=== PATIENT | female | born 1970 | race Caucasian/White ===

== ENCOUNTER 2018-07-28 17:23 | Emergency (ER) | payer BC ==
--- OUTSIDE RECORDS SUMMARY | 2018-07-28 17:28 | XMS REPORT | Continuity of Care Document ---
:1970 External Reference #:[id number] Author Name Elena Bailon M.D., R.D. Address [address] [place] [id number] Care Team Providers Name Role Phone Elena Bailon M.D., R.D. Care Team Information Adoption Worker Unavailable Payers Date Identification Numbers Payment Provider Subscriber Effective: 2011 Policy Number: [id number] [facility] Guido Raygoza Expires: 2014 Group Number: [id number] [address] PayID: [id number] [place] [address] Effective: 2014 Policy Number: Herminio Mckeon [id number] Medicaid Expires: 2015 PayID: [id number] [address] [place] [address] Effective: 2015 Policy Number: [id number] [facility] Colleen Mckeon Expires: 2016 [place] Name[place] [address] [address] PayID: [id number] HIRAM Bennett [id number] Effective: 2016 Policy Number: Herminio Mckeon [id number] Medicaid Expires: 2018 PayID: [id number] [address] [place] [address] Effective: 2018 Policy Number: Excellus YANDY Mckeon [id number] Group Name: [place] [address] [address] PayID: [id number] HIRAM Bennett [id number] Problems Active Problems Provider Date Disorder of endocrine system Elena Bailon M.D., R.D. Onset: 10/04/2012 Family History Date Family Member(s) Observation Comments General CAD General Glaucoma General Cancer, Breast Mother Osteoporosis Mother CAD Mother Eating Disorder Children 4 Children , 3 biological, one adopted Siblings 4 Siblings . Not in touch with. Was a contact. There was foster child so does not have much alcoholism. Aunt Cancer, Breast in late 40's. Social History Type Date Description Comments Sex Unknown Marital Status Diet Healthy, Well Balanced Analyzes diet regularly online to make sure she is eating healthy. Eats frequently through the day. Eats more now that she had low cortisol. 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 As of 2019 she is not running races. Runs about 50 miles per week. Allergies, Adverse Reactions, Alerts Description No Known Drug Allergies Medications Active Medications SIG Qnty Indications Ordering Provider Date Vitamin D-3 5 by mouth every Elena Bailon, 02/10/2015 1000Unit day M.D., R.D. Capsules Wellbutrin XL 1 by mouth every 30tabs Elena Bailon, 02/10/2015 150mg day M.D., R.D. Tablets ER 24HR Norethindrone take 1 tablet by 84tabs Elena Bailon, 03/20/2014 0.35mg mouth every day M.D., R.D. Tablets at the same time Levothyroxine Sodium take 1 tablet by 30tabs Elena Bailon, 09/05/2013 mouth every day M.D., R.D. 75mcg Tablets in the morning Multi-Vitamin/Fe 1 po qd Elena Bailon, 09/16/2008 M.Roman, R.D. Solution History Medications Wellbutrin XL take 1 tablet by 30tabs Elena 03/03/2015 - 300mg mouth every day Adamaris, 07/07/2018 Tablets ER 24HR Jennifer Raymundo. Cipro 1 po bid for 3 days 6tabs N39.0 [facility] 02/10/2015 - 250mg Tablets [facility], 07/07/2018 Jennifer Raymundo. Progesterone Cream apply 1/2-1 gram qd. 3MoSupply Elena 02/18/2014 - Adamaris, 03/20/2014 30G/G Zackary, R.D. Levothyroxine Sodium 1 by mouth every day 30tabs Padmini 08/07/2013 - Sparkle, 09/05/2013 100mcg Tablets [employer]ESSION[employer] SERVICES CONSULTANT-C Micronor Winfield 08/07/2013 - 0.35mg Sparkle, 08/07/2013 PROFESSIONAL SERVICES CONSULTANT-C Norethindrone 1 tablet by mouth 3pack [facility] 08/07/2013 - 0.35mg every day at the [facility], 11/21/2013 Tablets same time Jennifer Raymundo. Levothyroxine Sodium take one tablet by 90tabs Padmini 09/04/2011 - mouth daily. Sparkle, 08/07/2013 50mcg Tablets PROFESSIONAL SERVICES CONSULTANT-C Levothyroxine Sodium Take One-Half (1/2) 90tabs Elena 07/15/2011 - To One Tablet Daily Adamaris, 09/04/2011 25mcg Tablets Zackary, RTommy. Synthroid 1/2 to 1 po qd 90tabs Elena 04/08/2011 - 25mcg Adamaris, 07/15/2011 Tablets Zackary, RTommy. Concerta 1-2 po qd 60tabs [facility] 04/08/2011 - 18mg Tablets [facility], 07/07/2018 ER Zackary, R.D. Dicloxacillin Sodium 1 tablet q 6 hours 40caps 611.9 Padmini 02/01/2011 - for 10 days Sparkle, 03/19/2011 500mg Capsules PROFESSIONAL SERVICES CONSULTANT-C To Whom It May Colleen has been Marucs Pérez, 01/08/2011 - Concern prescribed M.Roman 03/19/2011 hydrocortisone Cortef 10 mg in the am, 5 450tabs Elena 11/23/2010 - 5mg Tablets mg at noon and at 5 Adamaris, 08/07/2013 pm, with one extra M.D., R.D. if especially rigorous physical training Progesterone Cream apply 1/2-1 gram qd. 3MoSupply [facility] 11/27/2009 - Adamaris, 02/18/2014 30G/G MKal, R.D. OTC Progesterone [facility] 11/21/2009 - Cream [facility], 03/19/2011 Zackary, R.D. Hydrocortisone 10 mg in the in the 120tabs [facility] 11/21/2009 - 5mg morning, 5 mg at [facility], 07/07/2018 Tablets noon and at 5mg at M.DTamika, R.D. night, with one extra if especially rigorous physical training Hydrocortisone 2 po in am, 1 po 120units [facility] 11/20/2008 - 0.5% mid-day and 1 at 5 [facility], 11/21/2009 Cream pm, 1 extra qd if M.D., R.D. extra physical training. Mammogram Lumpy area left [facility] 09/16/2008 - breast 3 o'clock. [facility], 03/19/2011 No prior mammo. Zackary, R.D. Medications Administered in Office Medication SIG Qnty Indications Ordering Provider Date TB,Intradermal (PPD, [facility] 03/24/2015 [facility]) Injection TB,Intradermal (PPD, Elena Bailon M.D., 02/10/2015 [facility]) R.D. Injection Immunizations CPT Code Status Date Vaccine Lot # [id number] Given 03/11/2015 MMR (Measles,Mumps,Rubella) [id number] 21821 Given 02/13/2015 Influenza Virus Vaccine, Quadrivalent, 3 Yr > [id number] Quad, Preserv Free 25917 Given 12/06/2012 Influenza Vaccine-Preservative Free 3 Yrs And [id number] Above 52659 Given 03/16/2012 MMR (Measles,Mumps,Rubella) [id number] 57718 Given 02/15/2012 Menactra (meningococcal conjugate vaccine) [id number] 22805 Given 11/21/2009 Influenza Vaccine-Preservative Free 3 Yrs And [id number] Above 94759 Given 12/06/2007 Tetanus Vital Signs Date Vital Result Comment 07/07/2018 1:06pm Weight 110.00 lb Weight 49.896 kg BP Systolic 100 mmHg BP Diastolic 70 mmHg Heart Rate 60 /min Body Temperature 99.0 F Respiratory Rate 16 /min Height 61.5 inches 5'1.50" BMI (Body Mass Index) 20.4 kg/m2 Last Menstrual Period 5828948 O2 % BldC Oximetry 99 % 08/13/2015 9:37am Weight 101.00 lb Weight 45.814 kg BP Systolic 98 mmHg BP Diastolic 66 mmHg Heart Rate 68 /min Body Temperature 98.4 F Height 62 inches 5'2" BMI (Body Mass Index) 18.5 kg/m2 02/10/2015 2:55pm Weight 110.00 lb Weight 49.896 kg BP Systolic 100 mmHg BP Diastolic 70 mmHg Heart Rate 46 /min Body Temperature 98.6 F 08/07/2013 1:33pm Weight 103.00 lb Weight 46.721 kg BP Systolic 108 mmHg BP Diastolic 84 mmHg Heart Rate 66 /min Height 62 inches 5'2" BMI (Body Mass Index) 18.8 kg/m2 Last Menstrual Period [id number] 07/27/2012 10:05am Weight 102.00 lb Weight 46.267 kg BP Systolic 98 mmHg BP Diastolic 60 mmHg Heart Rate 60 /min 03/18/2011 1:36pm Weight 100.50 lb Weight 45.587 kg BP Systolic 104 mmHg BP Diastolic 78 mmHg Heart Rate 68 /min Height 62 inches 5'2" BMI (Body Mass Index) 18.4 kg/m2 Last Menstrual Period [id number] 02/01/2011 9:50am Weight 102.00 lb Weight 46.267 kg BP Systolic 110 mmHg BP Diastolic 70 mmHg Heart Rate 68 /min 11/21/2009 1:38pm Weight 101.00 lb Weight 45.814 kg BP Systolic 120 mmHg BP Diastolic 80 mmHg Heart Rate 84 /min Height 61.25 inches 5'1.25" BMI (Body Mass Index) 18.9 kg/m2 Last Menstrual Period [id number] 10/14/2008 3:30pm Weight 99.00 lb Weight 44.906 kg BP Systolic 100 mmHg BP Diastolic 60 mmHg Heart Rate 72 /min 09/16/2008 1:34pm Weight 98.00 lb Weight 44.453 kg BP Systolic 116 mmHg BP Diastolic 70 mmHg Heart Rate 50 /min Height 61.25 inches 5'1.25" BMI (Body Mass Index) 18.4 kg/m2 Last Menstrual Period [id number] Results Test Date Facility Test Result H/L Range Note Laboratory test 07/07/2018 [facility] TSH 0.52 mcIU/ mL N 0.34-5.60 1 finding [phone] (Thyroid Stim Horm) Vitamin B12 547 pg/mL N 180-914 2 CBC Auto Diff 08/13/2015 [facility] White Blood 7.2 10^3/uL N 3.5-10.8 [phone] Count Red Blood Count 4.34 10^6/uL N 4.0-5.4 Hemoglobin 13.3 g/dL N 12.0-16.0 Hematocrit 40 % N 35-47 Mean Corpuscular Volume 92 fL N 80-97 Mean Corpuscular Hemoglobin 31 pg N 27-31 Mean Corpuscular HGB Conc 33 g/dL N 31-36 Red Cell Distribution Width 13 % N 10.5-15 Platelet Count 249 10^3/uL N 150-450 Mean Platelet Volume 11 um3 High 7.4-10.4 Abs Neutrophils 5.6 10^3/uL N 1.5-7.7 Abs Lymphocytes 1.2 10^3/uL N 1.0-4.8 Abs Monocytes 0.4 10^3/uL N 0-0.8 Abs Eosinophils 0 10^3/uL N 0-0.6 Abs Basophils 0 10^3/uL N 0-0.2 Abs Nucleated RBC 0 10^3/uL N Granulocyte % 77.7 % N 38-83 Lymphocyte % 16.0 % Low 25-47 Monocyte % 5.6 % N 1-9 Eosinophil % 0.1 % N 0-6 Basophil % 0.6 % N 0-2 Nucleated Red Blood Cells % 0 N Laboratory test 08/13/2015 [facility] Vitamin B12 675 pg/mL N 180-914 3 finding [phone] Comp Metabolic 08/13/2015 [facility] Sodium 137 mmol/ L N 133-145 Panel [phone] Potassium 4.4 mmol/L N 3.5-5.0 Chloride 100 mmol/L Low 101-111 Co2 Carbon Dioxide 31 mmol/L N 22-32 Anion Gap 6 mmol/L N 2-11 Glucose 70 mg/dL N 70-100 Blood Urea Nitrogen 16 mg/dL N 6-24 Creatinine 0.67 mg/dL N 0.51-0.95 BUN/Creatinine Ratio 23.9 High 8-20 Calcium 10.0 mg/dL N 8.6-10.3 Total Protein 6.6 g/dL N 6.4-8.9 Albumin 4.5 g/dL N 3.2-5.2 Globulin 2.1 g/dL N 2-4 Albumin/Globulin Ratio 2.1 N 1-3 Total Bilirubin 0.50 mg/dL N 0.2-1.0 Alkaline Phosphatase 64 U/L N 34-104 Alt 17 U/L N 7-52 Ast 24 U/L N 13-39 Egfr Non- 96.5 N >60 Egfr 124.1 N >60 4 Laboratory test 08/13/2015 [facility] TSH (Thyroid 0.90 ?IU/mL N 0.34-5.60 5 finding [phone] Stimulating Horm) Rubella Igg 02/13/2015 [facility] Rubella IgG Positive N 6 Titer [phone] Antibody Rubella IgG Antibody Index 4.5 N 7 Rubeola Measles 02/13/2015 [facility] Rubeola (Measles ) Negative N 8 Igg AB [phone] IgG Antibody Rubeola IgG Antibody Index 0.4 N 9 Mumps Igg 02/13/2015 [facility] Mumps Virus IgG Positive N 10 [phone] Antibody Mumps IgG Antibody Index 1.9 N 11 Varicella 02/13/2015 [facility] Varicella-Zoster IgG Positive N 12 Zoster Igg AB [phone] Antibody Varicella IgG Antibody Index 2.0 N 13 Laboratory test finding 02/11/2015 [facility] Acth 17 pg/mL N 14 [phone] Free Cortisol Serum 0.60 g/dL N 15 Aldosterone <4.0 ng/dL N <=21 16 TSH (Thyroid Stimulating Horm) 1.32 ?IU/mL N 0.34-5.60 Vitamin D Total 25(Oh) 37.1 ng/mL N 30-50 Rubella Screen Immune IU/mL N Immune Mumps Igg 02/11/2015 [facility] Mumps Virus IgG Positive N 17 [phone] Antibody Mumps IgG Antibody Index 1.7 N 18 Rubeola Measles 02/11/2015 [facility] Rubeola (Measles ) Negative N 19 Igg AB [phone] IgG Antibody Rubeola IgG Antibody Index 0.4 N 20 Varicella 02/11/2015 [facility] Varicella-Zoster IgG Positive N 21 Zoster Igg AB [phone] Antibody Varicella IgG Antibody Index 1.7 N 22 Laboratory test 02/10/2015 [facility] Urine Culture And SEE RESULT 23 finding [phone] Sensitivities BELOW Urine DIP 02/10/2015 In House Lab Specific [place] 1.020 1.01- (607)- - 1.02 Urine pH 5 5-6 Leukocytes ++ Neg Urine Nitrites NEG Neg Total Protein, Urine NEG Neg Urine Glucose NORM Norm Urine Ketones NEG Neg Urobilinogen NORM Norm Urine Bilirubin NEG Neg Urine Blood 50 High Neg Laboratory test 08/08/2013 [facility] Acth <5.0 pg/ mL Abnormal 24 finding [phone] TSH (Thyroid Stimulating Horm) 0.14 IU/mL Low 0.34-5.60 Cortisol 15.13 g/dL N 25 Hepatitis 08/08/2013 [facility] Hepatitis B Nonreactive N Nonreactive Acute Panel [phone] Surface Antigen Hepatitis B Core IgM Nonreactive N Nonreactive Hepatitis A AB IgM Nonreactive N Nonreactive Hepatitis C Antibody Nonreactive N Nonreactive HIV 1/2 AB 08/08/2013 [facility] HIV 1 2 Nonreactive N Nonreactive 26 Evaluation [phone] Antibody Syphilis 08/08/2013 [facility] Syphilis IgG Nonreactive N Nonreactive 27 Screen [phone] RPR TNP N Nonreactive RPR Titer TNP N Pediatric/Maternal NO N Laboratory test 08/07/2013 [facility] Genital Culture (SEE NOTE) 28 finding [phone] Affirm Vaginal Dna Probe (SEE NOTE) 29 Laboratory test 08/07/2013 [facility] Cytology RUN DATE: 30 finding [phone] 08/08/ SEE NOTE> GC/Chlamydia 08/07/2013 [facility] GC/Chlamydia Rna ( SEE NOTE) 31 Amplified Rna [phone] HPV High Risk 08/07/2013 [facility] Human See Comment N 32 [phone] Papillomavirus Source HPV High Risk Type 16, PCR Negative N Negative HPV High Risk Type 18, PCR Negative N Negative HPV Other Risk types Negative N Negative 33 Laboratory test 04/30/2013 [facility] Hemoglobin A1c 5.2 % Less than 34 finding [phone] 6.0 Glucose 81 mg/dL 70-100 Basic Metabolic 04/20/2013 [facility] Sodium 139 mmol /L 133-145 Panel [phone] Potassium 4.3 mmol/L 3.7-5.6 Chloride 103 mmol/L 101-111 Co2 Carbon Dioxide 30 mmol/L 22-32 Anion Gap 6 mmol/L 2-11 Glucose 119 mg/dL High 70-100 Blood Urea Nitrogen 18 mg/dL 6-24 Creatinine 0.78 mg/dL 0.51-0.95 BUN/Creatinine Ratio 23.1 High 8-20 Calcium 9.7 mg/dL 8.6-10.3 Egfr Non- 81.8 >60 Egfr 105.2 >60 35 Testosterone 08/08/2012 [facility] Free 0.2 Abnormal 0.3-1.9 36 Free & Total [phone] Testosterone ng/dL ng/dl Testosterone 11 ng/dL 8-60 37 Human Papilloma 07/28/2012 [facility] Human Papillomavirus See Comment 38 Virus [phone] Source Human Papillomavirus High Risk Negative Negative 39 Urine DIP 07/27/2012 In House Lab Leukocytes NEG Neg (607)- - Urine Nitrites NEG Neg Urine pH 5 5-6 Total Protein, Urine NEG Neg Urine Glucose NORM Norm Urine Ketones NEG Neg Urobilinogen NORM Norm Urine Bilirubin NEG Neg Urine Blood NEG Neg Specific [place] 1.010 1.01-1.02 Laboratory test 07/27/2012 [facility] Cytology RUN DATE: 40 finding [phone] SEE NOTE> Laboratory test 07/27/2012 [facility] TSH (Thyroid 1.14 miu/mL 0.34- finding [phone] Stimulating Horm) 5.60 Estradiol 131 pg/mL 41 Progesterone 1.64 ng/mL 42 Follicle Stimulating Hormone 6.04 miu/mL 43 Laboratory test 07/27/2012 In House Lab HCG DIP Test neg Neg finding (607)- - Laboratory test 07/14/2012 [facility] Acth 13 pg/mL 44 finding [phone] Free Cortisol 0.58 g/dL 45 Laboratory test finding 07/14/2012 [facility] Acth 13 pg/mL 46 [phone] Free Cortisol 0.58 g/dL 47 Mumps Igg 02/15/2012 [facility] Mumps Virus IgG Negative 48 [phone] Antibody Mumps IgG Antibody Index 0.78 0.00-0.89 49 Laboratory test 02/15/2012 [facility] TSH (Thyroid 0.37 0.34-5.60 finding [phone] Stimulating MIU/ML Horm) Free T4 0.99 ng/mL 0.61-1.24 Total T3 1.02 ng/mL 0.5-1.7 Rubeola (Measles) IgG Antibody Negative 50 Rubella IgG Antibody Positive 51 Laboratory test 08/26/2011 [facility] Acth 7.0 pg/mL Abnormal () 52 finding [phone] Cortisol 11.9 g/dL 53 Thyroxine Free 0.84 ng/dL 0.61-1.24 T3 Total 1.09 NG/ML 0.5-1.7 TSH 1.03 MIU/ML 0.34-5.60 Laboratory test 05/21/2011 [facility] TSH 0.74 MIU/ ML 0.34-5.60 finding [phone] T3 Total 1.05 NG/ML 0.5-1.7 Thyroxine Free 0.90 ng/dL 0.61-1.24 Comp Metabolic 03/24/2011 [facility] Sodium 138 mmol/ L 135-145 54 Panel [phone] Potassium 4.4 mmol/L 3.5-5.0 Chloride 104 mmol/L 101-111 Co2 (Carbon Dioxide) 28.0 mmol/L 22-32 Anion Gap 6.0 mmol/L 2-11 55 Glucose 71 mg/dL 70-100 BUN 9 mg/dL 6-24 Creatinine 0.7 mg/dL 0.50-1.40 One Over Creatinine 1.42 BUN/Creatinine Ratio 12.9 8-20 Calcium 9.2 mg/dL 8.1-9.9 Total Protein 6.7 GM/DL 6.2-8.1 Albumin 4.2 GM/DL 3.6-5.4 Globulin 2.5 GM/DL 2-4 Albumin/Globulin Ratio 1.7 1-3 Bilirubin Total 0.9 mg/dL 0.4-1.5 56 Alkaline Phosphatase 51 U/L 30-110 Alt (SGPT) 24 U/L 14-54 Ast (Sgot) 30 U/L 12-42 eGFR Non- 93.6 > 60 eGFR 120.4 > 60 57 PTH Intact, Inc 03/24/2011 [facility] PTH Intact 2.7 PMOL/L 1.3-9.3 Total Calcium [phone] Calcium For Pthi 9.3 mg/dL 8.1-9.9 58 Laboratory test 03/24/2011 [facility] Progesterone 18.0 NG/ML 59 finding [phone] Laboratory test 03/24/2011 [facility] Cortisol 10.5 g/dL 60 finding [phone] Acth 7.3 pg/mL Abnormal () 61 TSH 2.60 MIU/ML 0.34-5.60 Vitamin B12 903 pg/mL 180-914 CBC Auto Diff 03/24/2011 [facility] White Blood 4.9 CUMM 4.8-10.8 [phone] Count Red Cell Count 4.51 CUMM 4.2-5.4 Hemoglobin 14.2 g/dL 12.0-16.0 Hematocrit 42 % 35-47 Mean Corpuscular Volume 92 um3 79-97 Mean Corpuscular Hemoglob 32 pg High 27-31 Mean Corpuscular HGB Cone 34 g/dL 32-36 Redcell Distribution WDTH 14 % 10.5-15 Platelet Count 207 CUMM 150-450 Mean Platelet Volume 10.5 um3 High 7.4-10.4 Gran % 55.4 % 38-83 Lymph % 32.3 % 25-47 Mononuclear % 9.3 % High 1-9 Eosinophil % 1.4 % 0-6 Basophil % 1.6 % 0-2 Abs Lymphs 1.6 1.0-4.8 Abs Mononuclear 0.5 0-0.8 Absolute Neutrophil Count 2.7 1.5-7.7 Abs Eosinophils 0.1 0-0.6 Abs Basophils 0.1 0-0.2 Laboratory 03/18/2011 [facility] Cytology ----- 62 test finding [phone] <SEE NOTE> Laboratory 07/10/2010 [facility] TSH 2.34 MIU/ML 0.34 test finding [phone] -5.6 0 Lipid Profile 11/21/2009 [facility] Triglyceride 69 mg/dL 40-2 (Trig/Chol/HDL [phone] ) Cholesterol 215 mg/dL High Less Than 200 63 High Density Lipoprotein 95 mg/dL High 40-60 64 Cholesterol/HDL Ratio 2.26 AVERAGE 1-4.44 Low Density Lipoprotein 106 mg/dL High Less Than 100 65 Laboratory test 11/21/2009 [facility] TSH 1.09 MIU/ ML 0.34-5.60 finding [phone] Comp Metabolic 11/21/2009 [facility] Sodium 138 mmol/ L 135-145 Panel [phone] Potassium 3.7 mmol/L 3.5-5.0 Chloride 100 mmol/L Low 101-111 Co2 (Carbon Dioxide) 32.0 mmol/L 22-32 Anion Gap 6.0 mmol/L 2-11 66 Glucose 86 mg/dL 70-100 67 BUN 15 mg/dL 6-24 Creatinine 0.60 mg/dL 0.50-1.40 One Over Creatinine 1.60 BUN/Creatinine Ratio 25.0 High 8-20 Calcium 9.5 mg/dL 8.1-9.9 Total Protein 6.5 GM/DL 6.2-8.1 Albumin 4.3 GM/DL 3.6-5.4 Globulin 2.2 GM/DL 2-4 Albumin/Globulin Ratio 2.0 1-3 Bilirubin Total 0.8 mg/dL 0.4-1.5 68 Alkaline Phosphatase 72 U/L 30-110 Alt (SGPT) 45 U/L 14-54 Ast (Sgot) 53 U/L High 12-42 eGFR Non- 120.2 > 60 eGFR 145.5 > 60 69 Urine DIP 11/21/2009 In House Lab Leukocytes NEG Neg (607)- - Urine Nitrites NEG Neg Urine pH 7 High 5-6 Total Protein, Urine NEG Neg Urine Glucose NORM Norm Urine Ketones NEG Neg Urobilinogen NORM Norm Urine Bilirubin NEG Neg Urine Blood TRACE Neg Specific [place] NA Low 1.01-1.02 Laboratory test 11/21/2009 [facility] Cytology ------ <SEE 70 finding [phone] NOTE> Basic Metabolic 07/03/2009 [facility] Sodium 139 mmol /L 135-1 Panel [phone] Potassium 3.8 mmol/L 3.5-5.0 Chloride 101 mmol/L 101-111 Co2 (Carbon Dioxide) 30.0 mmol/L 22-32 Anion Gap 8.0 mmol/L 2-11 71 Glucose 85 mg/dL 70-100 72 BUN 11 mg/dL 6-24 Creatinine 0.70 mg/dL 0.50-1.40 One Over Creatinine 1.40 BUN/Creatinine Ratio 15.7 8-20 Calcium 9.2 mg/dL 8.1-9.9 73 eGFR Non- 100.6 > 60 eGFR 121.8 > 60 74 Laboratory test 07/03/2009 [facility] Prolactin 11.68 NG/ML 1.0-25.0 finding [phone] Testosterone Total 30.7 ng/dL 10-75 Comp Metabolic Panel 12/09/2008 [facility] Sodium 139 mmol/L 135-145 [phone] Potassium 4.0 mmol/L 3.5-5.0 Chloride 105 mmol/L 101-111 Co2 (Carbon Dioxide) 29.0 mmol/L 22-32 Anion Gap 5.0 mmol/L 2-11 75 Glucose 109 mg/dL High 70-100 76 BUN 8 mg/dL 6-24 Creatinine 0.70 mg/dL 0.50-1.40 One Over Creatinine 1.40 BUN/Creatinine Ratio 11.4 8-20 Calcium 9.3 mg/dL 8.1-9.9 77 Total Protein 6.3 GM/DL 6.2-8.1 Albumin 3.9 GM/DL 3.6-5.4 Globulin 2.4 GM/DL 2-4 Albumin/Globulin Ratio 1.6 1-3 Bilirubin Total 0.7 mg/dL 0.4-1.5 78 Alkaline Phosphatase 65 U/L 30-110 Alt (SGPT) 21 U/L 14-54 Ast (Sgot) 26 U/L 12-42 eGFR Non- 101.2 > 60 eGFR 122.5 > 60 79 Laboratory test 12/09/2008 [facility] Thyroxine Free 0.65 NG/ML 0.61-1.24 80 finding [phone] TSH 1.98 MIU/ML 0.34-5.60 Aldosterone <4.0 ng/dL <=21 81 Renin <0.6 ng/mL/h () 82 Thyroperoxidase AB 0.9 IU/mL <9.0 83 Laboratory test 10/30/2008 [facility] Cortisol 16.3 g/dL 84 finding [phone] Lyme Western 10/21/2008 [facility] Lyme Disease Negative Negative 85 Blot Specialty [phone] Igg Western Blot Lyme Disease Igm Western Blot Negative Negative 86 Lyme Disease Interpretation . () 87 Laboratory test 10/21/2008 [facility] Cortisol 7.8 g/dL 88 finding [phone] Acth 7.7 pg/mL Abnormal () 89 Destiney Conner 10/14/2008 [facility] Ebv Vca Positive Negative Comprehensive [phone] Igg Ebv Vca Igm Negative Negative Ebna Positive Negative Ebv Interpretation SEE BELOW () 90 Laboratory test 10/14/2008 [facility] CMV Igm Negative Negative 91 finding [phone] CMV Igg <4 AU/mL <4 92 CPK (Creatine Kinase) 115 U/L 0-170 Erythrocyte Sed Rate 13 MM/HR 0-15 Lynnette (Antinuclear 10/14/2008 [facility] Antinuclear AB NEGATIVE Negative Antibodies) [phone] Laboratory test 10/14/2008 [facility] Rheumatoid < 20.0 Less Than finding [phone] Factor IU/mL 20 Laboratory test 09/30/2008 [facility] FSH 5.93 MIU/ ML 93 finding [phone] Lutenizing Hormone 20.77 MIU/ML 94 Estradiol 42 pg/mL 95 Prolactin 11.76 NG/ML 1.0-25.0 Acth 12 pg/mL () 96 Cortisol 7.7 g/dL 97 Progesterone 0.5 NG/ML 98 Laboratory test 09/16/2008 [facility] Cytology ------ 99 finding [phone] <SEE NOTE> Laboratory test 09/16/2008 [facility] TSH 1.73 MIU/ ML 0.34 finding [phone] 0 Iron & Iron 09/16/2008 [facility] Iron Total 81 g/ dL 28-1 Binding [phone] Capacity Unsaturated Iron Binding 371 g/dL Total Iron Binding Capacity 452 g/dL High 250-450 % Iron Saturation 18 % 15-55 CBC With 09/16/2008 [facility] White Blood 5.1 CUMM 4.8-10.8 Electronic Diff [phone] Count Red Cell Count 4.22 CUMM 4.2-5.4 Hemoglobin 13.3 g/dL 12.0-16.0 Hematocrit 39 % 35-47 Mean Corpuscular Volume 93 um3 79-97 Mean Corpuscular Hemoglob 31 pg 27-31 Mean Corpuscular HGB Cone 34 g/dL 32-36 Redcell Distribution WDTH 14 % 10.5-15 Platelet Count 229 CUMM 150-450 Mean Platelet Volume 10.2 um3 7.4-10.4 Gran % 73.7 % 38-83 Lymph % 19.4 % Low 25-47 Mononuclear % 5.0 % 1-9 Eosinophil % 0.9 % 0-6 Basophil % 1.0 % 0-2 Abs Lymphs 1.0 1.0-4.8 Abs Mononuclear 0.3 0-0.8 Absolute Neutrophil Count 3.7 1.5-7.7 Abs Eosinophils 0 0-0.6 Abs Basophils 0 0-0.2 100 Comp Metabolic Panel 09/16/2008 [facility] Sodium 138 mmol/L 135-145 [phone] Potassium 3.8 mmol/L 3.5-5.0 Chloride 103 mmol/L 101-111 Co2 (Carbon Dioxide) 29.0 mmol/L 22-32 Anion Gap 6.0 mmol/L 2-11 101 Glucose 83 mg/dL 70-100 102 BUN 10 mg/dL 6-24 Creatinine 0.70 mg/dL 0.50-1.40 One Over Creatinine 1.40 BUN/Creatinine Ratio 14.3 8-20 Calcium 9.5 mg/dL 8.1-9.9 103 Total Protein 6.3 GM/DL 6.2-8.1 Albumin 4.3 GM/DL 3.6-5.4 Globulin 2.0 GM/DL 2-4 Albumin/Globulin Ratio 2.2 1-3 Bilirubin Total 0.5 mg/dL 0.4-1.5 104 Alkaline Phosphatase 84 U/L 30-110 Alt (SGPT) 28 U/L 14-54 Ast (Sgot) 38 U/L 12-42 eGFR Non- 101.2 > 60 eGFR 122.5 > 60 105 PTH Intact, Inc 09/16/2008 [facility] PTH Intact 2.7 PMOL/L 1.3-9.3 106 Total Calcium [phone] Calcium For Pthi 9.2 mg/dL 8.1-9.9 107 Vitamin D.25 09/16/2008 [facility] 25-Hydroxy Vitamin <4.0 ng/mL () Hydroxy [phone] [phone] 25-Hydroxy Vitamin D3 48 ng/mL () 25-Hydroxy Vitamin D Total 48 ng/mL () 108 Laboratory test 09/16/2008 [facility] Vitamin B12 599 pg/mL 180-914 finding [phone] Urine DIP 09/16/2008 In House Lab Leukocytes NEG Neg (607)- - Urine Nitrites NEG Neg Urine pH 5 5-6 Total Protein, Urine NEG Neg Urine Glucose NORM Norm Urine Ketones NEG Neg Urobilinogen NORM Norm Urine Bilirubin NEG Neg Urine Blood NEG Neg Specific [place] NA Low 1.01-1.02 1 [id number] 2 Normal Range 180 to 914 Indeterminate Range 145 to 180 Deficient Range <145 3 Normal Range 180 to 914 Indeterminate Range 145 to 180 Deficient Range <145 4 Because ethnic data is not always readily available, this report includes an eGFR for both -Americans and non- Americans. The National Kidney Disease Education Program (NKDEP) does not endorse the use of the MDRD equation for patients that are not between the ages of 18 and 70, are , have extremes of body size, muscle mass, or nutritional status, or are non- or non-. According to the National Kidney Foundation, irrespective of diagnosis, the stage of the disease is based on the level of kidney function: Stage Description GFR(mL/min/1.73 m(2)) 1 Kidney damage with normal or decreased GFR 90 2 Kidney damage with mild decrease in GFR 60-89 3 Moderate decrease in GFR 30-59 4 Severe decrease in GFR 15-29 5 Kidney failure <15 (or dialysis) 5 [id number] 6 Results suggest response to immunization or prior exposure to the virus. REFERENCE VALUE Vaccinated: Positive (>=1.0 AI) Unvaccinated: Negative (<=0.7 AI) 7 Test Performed by: [place] [address] Dental Associate: Markos Galan II, M.D., Ph.D. 8 REFERENCE VALUE Vaccinated: Positive (>=1.1 AI) Unvaccinated: Negative (<=0.8 AI) 9 Test Performed by: [place] [address] Dental Associate: Markos Galan II, M.D., Ph.D. 10 Results suggest response to immunization or prior exposure to the virus. REFERENCE VALUE Vaccinated: Positive (>=1.1 AI) Unvaccinated: Negative (<=0.8 AI) 11 Test Performed by: [place] [address] Dental Associate: Markos Galan II, M.D., Ph.D. 12 Results suggest response to immunization or prior exposure to the virus. REFERENCE VALUE Vaccinated: Positive (>=1.1 AI) Unvaccinated: Negative (<=0.8 AI) 13 Test Performed by: [facility] [place] [address] Dental Associate: Markos Galan II, M.D., Ph.D. 14 REFERENCE VALUE 10-60 (a.m. collection) Test Performed by: [facility] [place] [address] Dental Associate: Markos Galan II, M.D., Ph.D. 15 Adult Reference Ranges for Cortisol, Free, LC/MS/MS: 8:00 - 10:00 AM 0.07-0.93 mcg/dL 4:00 - 6:00 PM 0.04-0.45 mcg/dL 10:00 - 11:00 PM 0.04-0.35 mcg/dL Test Performed by: [facility] [id number] [place] [phone] 16 ADDITIONAL INFORMATION Reference range for patients 11 years and older is based on upright A.M. collection from subjects without sodium restrictions. Test Performed by: [facility] [place] [address] Dental Associate: Markos Galan II, M.D., Ph.D. 17 Results suggest response to immunization or prior exposure to the virus. REFERENCE VALUE Vaccinated: Positive (>=1.1 AI) Unvaccinated: Negative (<=0.8 AI) 18 Test Performed by: [facility] - [address] [address] Dental Associate: Markos Galan II, M.D., Ph.D. 19 REFERENCE VALUE Vaccinated: Positive (>=1.1 AI) Unvaccinated: Negative (<=0.8 AI) 20 Test Performed by: [facility] [place] [address] Dental Associate: Markos Galan II, M.D., Ph.D. 21 Results suggest response to immunization or prior exposure to the virus. REFERENCE VALUE Vaccinated: Positive (>=1.1 AI) Unvaccinated: Negative (<=0.8 AI) 22 Test Performed by: [facility] [place] [address] Dental Associate: Markos Galan II, M.D., Ph.D. 23 SEE RESULT BELOW Name: COLLEEN MCKEON : [address]: Elena Bailon MD Acct: [id number] Unit: [id number] AGE: 44 Location: [facility] Re02/10/15 SEX: F Status: REG REF SPEC: [id number] REJI: 02/10/15-1604 [facility] DR: Elena Bailon MD REQ: [id number] RECD: 02/10/15 STATUS: COMP _ SOURCE: URINE SPDESC: ORDERED: Urine Culture Procedure Result Reported Site Urine Culture Final 02/12/15- 35 ML No Growth (<1,000 CFU/mL) * ML - MAIN LAB ([facility]) . END OF REPORT * ML=Testing performed at Main Lab DEPARTMENT OF PATHOLOGY, [address] [place] [address] Laurent Soliman M.D. Director [facility] # [id number] 24 -- REFERENCE VALUE -- 60 (a.m. collection) Test Performed by: [address] [address] Dental Associate: Mak Alaniz III, M.D. 25 AM 8.7-22.4 PM <10 26 It is recognized that currently available assays for the detection of antibodies to HIV-1 and/or HIV-2 may not detect all infected individuals. HIV antibodies may be undetectable in some stages of the infection and in some clinical conditions. The performance of this assay has not been established for populations of infants or children. Assayed by Chemiluminescence Microparticle Immunoassay on the Siemens Advia Centaur CP. Values obtained with different methods or kits cannot be used interchangeably.The diagnostic specificity of the ADVIA Centaur 1/O/2 Enhanced assay in the low risk population was 99.90% (6052/6058) with a 95% confidence interval of 99.78 to 99.96%. 27 Warning: A positive result is not useful for establishing a diagnosis of syphilis. In most situations, such a result may reflect a prior treated infection; a negative result can exclude a diagnosis of syphilis except for incubating or early primary disease. 28 RUN DATE: 08/09/13 [facility] LIVE PAGE 1 RUN TIME: [address] [place] [address] Specimen Inquiry Name: COLLEEN RAYGOZA : [address]: Padmini Morris NP Acct: [id number] Unit: [id number] AGE: 42 Location: [facility] Re08/07/13 SEX: F Status: REG REF SPEC: [id number] REJI: 08/07/13-1511 [facility] DR: Padmini Morris NP REQ: [id number] RECD: 08/07/13 STATUS: COMP _ SOURCE: VAGINAL SPDESC: ORDERED: Genital Culture, Affirm QUERIES: Medent Number [id number] Procedure Result Verified Site Genital Culture Final 08/09/13- 1121 ML Organism 1 NORMAL GOSIA Quantity 3+ Affirm Vaginal DNA Probe Final 08/08/13- 1123 ML Organism 1 Negative Trichomonas Organism 2 Negative Gardnerella Organism 3 Negative Brandy The presence of G. vaginalis, although suggestive, is not diagnostic for bacterial vaginosis. Results should be interpreted in conjunction with other clinical and laboratory data available. Women with vaginal discharge should be evaluated for risk factors of cervicitis and pelvic inflammatory disease, toxic shock syndrome (S.aureus), and if present, evaluated for organisms not included in this assay such as N. gonorrhoeae, C. trachomatis, Mobiluncus, Mycoplasma and/or Prevotella. Mixed infections may occur. The performance of this test on patient specimens collected during or immediately after antimicrobial therapy is unknown. The presence or absence of Brandy species, G. vaginalis or T. vaginalis cannot be used as a test for therapeutic success or failure. END OF REPORT * ML=Testing performed at Main Lab DEPARTMENT OF PATHOLOGY, [facility] [place], [place] [address] Laurent Soliman M.D. Director [place] # [id number] RUN DATE: 08/08/13 [facility] LIVE PAGE 1 RUN TIME: 1122 [facility] [place], [place] [address] Specimen Inquiry Name: COLLEEN RAYGOZA : [address]: Padmini Morris NP Acct: [id number] Unit: [id number] AGE: 42 Location: [facility] Re08/07/13 SEX: F Status: REG REF SPEC: [id number] REJI: 08/07/13-[address]: Padmini Morris NP REQ: [id number] RECD: 08/07/13 STATUS: RES _ SOURCE: VAGINAL SPDESC: ORDERED: Genital Culture, Affirm QUERIES: Medent Number [id number] Procedure Result Verified Site Genital Culture PENDING Affirm Vaginal DNA Probe Final 08/08/13- 1123 ML Organism 1 Negative Trichomonas Organism 2 Negative Gardnerella Organism 3 Negative Brandy The presence of G. vaginalis, although suggestive, is not diagnostic for bacterial vaginosis. Results should be interpreted in conjunction with other clinical and laboratory data available. Women with vaginal discharge should be evaluated for risk factors of cervicitis and pelvic inflammatory disease, toxic shock syndrome (S.aureus), and if present, evaluated for organisms not included in this assay such as N. gonorrhoeae, C. trachomatis, Mobiluncus, Mycoplasma and/or Prevotella. Mixed infections may occur. The performance of this test on patient specimens collected during or immediately after antimicrobial therapy is unknown. The presence or absence of Brandy species, G. vaginalis or T. vaginalis cannot be used as a test for therapeutic success or failure. CONTINUED ON NEXT PAGE * ML=Testing performed at Main Lab DEPARTMENT OF PATHOLOGY, [address] [place] [address] Laurent Soliman M.D. Director [facility] # [id number] RUN DATE: 08/08/13 [facility] LIVE PAGE 2 RUN TIME: [address] [place] [address] Specimen Inquiry Patient: COLLEEN RAYGOZA [id number] (Continued) Specimen: [id number] Collected: 08/07/13 Received: 08/07/13 (Continued) Procedure Result Verified Site Affirm Vaginal DNA Probe Final (continued) 08/08/13- 112 END OF REPORT * ML=Testing performed at Main Lab DEPARTMENT OF PATHOLOGY, [facility] [place] [address] Laurent Soliman M.D. Director DEVI # [id number] RUN DATE: 08/08/13 [facility] LIVE PAGE 1 RUN TIME: 1511 [facility] [place], [place] [address] Specimen Inquiry Name: COLLEEN RAYGOZA : [address]: Padmini Morris NP Acct: [id number] Unit: [id number] AGE: 42 Location: [facility] Re08/07/13 SEX: F Status: REG REF SPEC: [id number] REJI: 08/07/13-[address]: Padmini Morris NP REQ: [id number] RECD: 08/07/13053 STATUS: SOUT _ ORDERED: IMAGE ANALYSIS, PAP SM PATH REV, HPV/Thin Prep FINAL DIAGNOSIS EPITHELIAL CELL ABNORMALITIES Atypical squamous cells of undetermined significance Endometrial cells in a woman over or equal to 40 years of age COMMENTS: Specimen sent to [facility] in [place], [place] on 08/08/13 by [id number] at 1357. Results will be reported separately. Endometrial cells after age 40, particularly out of phase or after menopause may be associated with benign endometrium, hormonal alterations and less commonly, endometrial/uterine abnormalities. Clinical correlation is recommended. A. Ectocervical/Endocervical Specimen Adequacy: Satisfactory of evaluation Transformation zone component identified Patient Information: HPV: High risk HPV DNA testing regardless of pap results. Actual Specimen Date: 08/07/13 Last Menstrual Date: 06/09/13 Date of Last Specimen: 07/27/12 Signed (signature on file) Laurent Soliman MD [id number] This Pap test was evaluated with the assistance of the G-volutionPrep Test Imaging System. Due to cytologic findings at the stunt person microscope, comprehensive manual rescreening by a Orthotic Fitter may be required. The Pap Smear is a screening test designed to aid in the detection of premalignant and malignant conditions of the uterine cervix. It is not a diagnostic procedure and should not be used as the sole means of detecting cervical cancer. Both false- positive and false- negative reports do occur. Depending on your risk status, a Pap smear shoudl be obtained and evaluated every 1-3 years. END OF REPORT * ML=Testing performed at Main Lab DEPARTMENT OF PATHOLOGY, [facility] [place], [place] [address] Laurent Soliman M.D. Director [facility] # [id number] RUN DATE: 08/08/13 [facility] LIVE PAGE 1 RUN TIME: 1595 [facility] [place], [place] [address] Specimen Inquiry Patient: COLLEEN RAYGOZA [id number] (Continued) 31 RUN DATE: 08/10/13 [facility] LIVE PAGE 1 RUN TIME: [address] [place] [address] Specimen Inquiry Name: IDALMIS,COLLEEN M : [address]: Padmini Morris NP Acct: [id number] Unit: [id number] AGE: 42 Location: [facility] Re08/07/13 SEX: F Status: REG REF SPEC: [id number] REJI: 08/07/13-[address]: Padmini Morris NP REQ: [id number] RECD: 08/07/13 STATUS: COMP _ SOURCE: THIN SPDESC: ORDERED: GC/Chlam RNA QUERIES: Medent Number [id number] Procedure Result Verified Site Chlamydia Trachomatis RNA Final 08/10/13- 1352 ML NEGATIVE for Chlamydia trachomatis rRNA GC (N. gonorrhoeae) RNA Final 08/10/13- 1352 ML NEGATIVE for Neisseria gonorrhoeae rRNA A negative result does not preclude the presence of a C. trachomatis or N. gonorrhoeae infection because results are dependent on adequate specimen collection, absence of inhibitors, and sufficient rRNA to be detected. Test results may be affected by improper specimen collection, improper storage, technical error, or specimen mixup. Limitations of the Procedure: The Aptima Combo 2 Assay is not intended for the evaluation of suspected sexual abuse or for other medico-legal indications. For those patients for whom a false positive result may have adverse psychosocial impact, the CDC recommends retesting by a method using an alternate technology. Therapeutic failure or success cannot be determined with the Aptima Combo 2 Assay since nucleic acid may persist following appropriate antimicrobial therapy. Results from the Aptima Combo 2 Assay should be interpreted in conjunction with other laboratory and clinical data available to the clinican. CONTINUED ON NEXT PAGE * ML=Testing performed at [facility] DEPARTMENT OF PATHOLOGY, [address] [place] [address] Laurent Soliman M.D. Director [place] # [id number] RUN DATE: 08/10/13 [facility] LIVE PAGE 2 RUN TIME: [address] [place] [address] Specimen Inquiry Patient: COLLEEN RAYGOZA [id number] (Continued) Specimen: [id number] Collected: 08/07/13 Received: 08/07/13-1755 (Continued) Procedure Result Verified Site GC (N. gonorrhoeae) RNA Final (continued) 08/10/13- 1352 Performance characteristics for detecting C. trachomatis and N. gonorrhoeae are derived from high prevalence populations. Positive results in low prevalence populations should be interpreted carefully with the understanding that the likelihood of a false positive may be higher than a true positive. END OF REPORT * ML=Testing performed at Main Lab DEPARTMENT OF PATHOLOGY, [address] [place] [address] Laurent Soliman M.D. Director [facility] # [id number] RESULT: Ectocervical/Endocervical 33 The following Other High Risk HPV types were not detected: 31, 33, 35, 39, 45, 51, 52, 56, 58, 59, 66, and 68 Test Performed by: [place] [address] Dental Associate: Mak Alaniz III, M.D. 34 Therapeutic target for the treatment of diabetes Mellitus patients is <7% HBA1C, and in selective patients <6.0%.Please refer to [place] [employer] Diabetic care guidelines for further information. 35 Because ethnic data is not always readily available, this report includes an eGFR for both -Americans and non- Americans. The National Kidney Disease Education Program (NKDEP) does not endorse the use of the MDRD equation for patients that are not between the ages of 18 and 70, are , have extremes of body size, muscle mass, or nutritional status, or are non- or non-. According to the National Kidney Foundation, irrespective of diagnosis, the stage of the disease is based on the level of kidney function: Stage Description GFR(mL/min/1.73 m(2)) 1 Kidney damage with normal or decreased GFR 90 2 Kidney damage with mild decrease in GFR 60-89 3 Moderate decrease in GFR 30-59 4 Severe decrease in GFR 15-29 5 Kidney failure <15 (or dialysis) 36 Testing performed by [facility]. 37 Testing performed by Liquid Chromatography-Tandem Mass Spectrometry (LC-MS/MS). Test Performed by: [address] [address] Dental Associate: Mak Alaniz III, M.D. 38 RESULT: Ectocervical/Endocervical 39 For types 16, 18, 31, 33, 35, 39, 45, 51, 52, 56, 58, 59 and 68. Test Performed by: [address] [address] Dental Associate: Mak Alaniz III, M.D. 40 RUN DATE: 07/28/12 [facility] LIVE PAGE 1 RUN TIME: [address] [place] [address] Specimen Inquiry Name: COLLEEN RAYGOZA : [address]: Elena Bailon MD Acct: [id number] Unit: [id number] AGE: 41 Location: [facility] Re07/27/12 SEX: F Status: REG REF SPEC: [id number] REJI: 07/27/12-[address]: Elena Bailon MD REQ: [id number] RECD: 07/27/12-1213 STATUS: SOUT _ ORDERED: IMAGE ANALYSIS, HPV / Thin Prep FINAL DIAGNOSIS Negative for Intraepithelial lesion or Malignancy COMMENTS: Specimen sent to [facility] in [place], [place] on 07/28/12 by [id number] at 1051. Results will be reported separately. A. Ectocervical/Endocervical Specimen Adequacy: Satisfactory of evaluation Transformation zone component identified Patient Information: HPV: High risk HPV DNA testing regardless of pap results. Actual Specimen Date: 07/27/12 LMP If Unknown: irregular 1-2 wks ago Date of Last Specimen: 03/18/11 Signed (signature on file) SHAY Hampton (ASCP) 07/28/12 1102 This Pap test was evaluated with the assistance of the G-volutionPrep Test Imaging System. Due to cytologic findings at the stunt person microscope, comprehensive manual rescreening by a Orthotic Fitter may be required. The Pap Smear is a screening test designed to aid in the detection of premalignant and malignant conditions of the uterine cervix. It is not a diagnostic procedure and should not be used as the sole means of detecting cervical cancer. Both false- positive and false- negative reports do occur. Depending on your risk status, a Pap smear shoudl be obtained and evaluated every 1-3 years. END OF REPORT * ML=Testing performed at Main Lab DEPARTMENT OF PATHOLOGY, [address] [place] [address] Laurent Soliman M.D. Director [facility] Permit #[id number] 41 Postmenopausal Females < 20 Ovulating females: by day in cycle relative to LH Peak Follicular phase - 12 10-50 - 4 60-200 Mid-cycle - 1 120-375 Luteal phase + 2 50-155 + 6 60-260 + 12 15-115 42 R Female reference ranges for Progesterone: Follicular phase.......0.3 - 1.5 ng/ml Mid-luteal phase.......5.2 - 18.5 ng/ml Postmenopausal.........< 0.8 ng/ml 1st trimester.........4.7 - 50.0 ng/ml 2nd trimester.........19.4 - 45.3 ng/ml 43 Normally menstruating females - Follicular phase 3 - 9 - Mid-cycle peak 4 - 23 - Luteal phase 1 - 6 Postmenopausal females 16 - 114 44 -- REFERENCE VALUE -- 10-60 (a.m. collection) Test Performed by: [place] [address] Dental Associate: Mak Alaniz III, M.D. 45 Adult Reference Ranges for Cortisol, Free, LC/MS/MS: 8:00 - 10:00 AM 0.07-0.93 mcg/dL 4:00 - 6:00 PM 0.04-0.45 mcg/dL 10:00 - 11:00 PM 0.04-0.35 mcg/dL Test Performed by: [facility] [place] [address] [place] [phone] 46 -- REFERENCE VALUE -- 10-60 (a.m. collection) Test Performed by: [place] [address] Dental Associate: Mak Alaniz III, M.D. 47 Adult Reference Ranges for Cortisol, Free, LC/MS/MS: 8:00 - 10:00 AM 0.07-0.93 mcg/dL 4:00 - 6:00 PM 0.04-0.45 mcg/dL 10:00 - 11:00 PM 0.04-0.35 mcg/dL Test Performed by: [facility] [place] [address] [place] [phone] 48 -- REFERENCE VALUE -- Negative 49 Test Performed by: [place] [address] Dental Associate: Mak Alaniz III, M.D. 50 -- REFERENCE VALUE -- Negative Test Performed by: [facility] - [address] [address] Dental Associate: Mak Alaniz III, M.D. 51 -- REFERENCE VALUE -- Negative Test Performed by: [facility] - [address] [address] Dental Associate: Mak Alaniz III, M.D. 52 -- REFERENCE VALUE -- 10-60 (a.m. collection) Test Performed by: [facility] - [address] [address] Dental Associate: Mak Alaniz III, M.D. 53 REFERENCE RANGE: AM 8.7-22.4 PM LESS THAN 10 . 54 FASTING 55 Anion gap measurement may be of limited value in the presence of any alkalosis, especially in a combined acid base disorder. . 56 A metabolite of Naproxen, O-desmethylnaproxen, has been shown to interfere with the [place] method for measuring total bilirubin. Samples from patients who have taken Naproxen have shown spurious elevation in total bilirubin levels. 57 Because ethnic data is not always readily available, this report includes an eGFR for both -Americans and non- Americans. The National Kidney Disease Education Program (NKDEP) does not endorse the use of the MDRD equation for patients that are not between the ages of 18 and 70, are , have extremes of body size, muscle mass, or nutritional status, or are non- or non-. According to the National Kidney Foundation, irrespective of diagnosis, the stage of the disease is based on the level of kidney function: Stage Description GFR(mL/min/1.73 m(2)) 1 Kidney damage with normal or decreased GFR 90 2 Kidney damage with mild decrease in GFR 60-89 3 Moderate decrease in GFR 30-59 4 Severe decrease in GFR 15-29 5 Kidney failure <15 (or dialysis) 58 Please note change in reference range effective 08 . 59 FEMALE REFERENCE RANGES FOR Progesterone: Follicular phase.......0.3 - 1.5 ng/ml Mid-luteal phase.......5.2 - 18.5 ng/ml Postmenopausal.........< 0.8 ng/ml 1st trimester.........4.7 - 50.0 ng/ml 2nd trimester.........19.4 - 45.3 ng/ml . 60 REFERENCE RANGE: AM 8.7-22.4 PM LESS THAN 10 . 61 -- REFERENCE VALUE -- 10-60 (a.m. collection) Test Performed by: [facility] D[facility] of Lab Med and Pathology [address] [place] [address] Dental Associate: Mak Alaniz III, M.D. 62 ---- RUN DATE: 03/19/11 [facility] NMI LIVE PAGE 1 RUN TIME: 1746 Specimen Inquiry RUN USER: INTERFACE -- Name: COLLEEN RAYGOZA#: [id number] Status: REG REF Re03/18/11 Age/Sex: 40/F Unit#: [id number] Location: [facility] : 74 -- Specimen: [id number] Spec Date: 03/18/[address]: Elena caldera MD Spec Type: CYTOLOGY Received: 03/19/11-1110 Copies to: SOURCE ECTOCERVICAL/ENDOCERVICAL Thin Prep with Reflex HPV Test PATIENT INFORMATION ACTUAL COLLECTION DATE: 03/18/11 LAST MENSTRUAL PERIOD: 03/03/11 DATE OF PRIOR SPECIMEN: 11/21/09 ADEQUACY OF SPECIMEN Satisfactory for evaluation * Transformation zone component identified * DIAGNOSIS NEGATIVE FOR INTRAEPITHELIAL LESION OR MALIGNANCY * This Pap test was evaluated with the assistance of the G-volutionPrep Pap Test Imaging System. The Pap Smear is a screening test designed to aid in the detection of premalign ant and malignant conditions of the uterine cervix. It is not a diagnostic procedure a nd should not be used as the sole means of detecting cervical cancer. Both false- positiv e and false-negative reports do occur. Depending on your risk status, a Pap smear marc uld be obtained and evaluated every one to three years. Initial evaluation performed by Loyd MANUEL(ASC) 03/19/11 Final Interpretation electronically signed by: Loyd MANUEL(ASCP) 03/19/11 1746 -- -- DEPARTMENT OF PATHOLOGY, [address] [place] [address] [facility] Permit #[id number] Laurent Soliman M.D. Director Sonido Bustamante M.D. Bag Bailer Dir esau -- 63 CHOLESTEROL INTERPRETATION: Desirable: Less than 200 MG/DL Borderline-High Risk: 200-239 MG/DL High-Risk: 240 MG/DL and over 64 HDL INTERPRETATION: Undesirable: High Risk: Less than 40 MG/DL Desirable: Low Risk: Greater than 60 MG/DL 65 LDL INTERPRETATION: Low Risk Optimal Level: LDL Less than 100 MG/DL Near or Above Optimal: LDL 100-129 MG/DL Borderline High Risk: LDL 130-159 MG/DL High Risk: LDL 160-189 MG/DL Very High Risk: LDL Greater than 189 MG/DL 66 Anion gap measurement may be of limited value in the presence of any alkalosis, especially in a combined acid base disorder. . 67 Note change in reference range as of 10/26/07. The change was based on recommendations from the [place] [employer]. 68 A metabolite of Naproxen, O-desmethylnaproxen, has been shown to interfere with the [place] method for measuring total bilirubin. Samples from patients who have taken Naproxen have shown spurious elevation in total bilirubin levels. 69 Because ethnic data is not always readily available, this report includes an eGFR for both -Americans and non- Americans. The National Kidney Disease Education Program (NKDEP) does not endorse the use of the MDRD equation for patients that are not between the ages of 18 and 70, are , have extremes of body size, muscle mass, or nutritional status, or are non- or non-. According to the National Kidney Foundation, irrespective of diagnosis, the stage of the disease is based on the level of kidney function: Stage Description GFR(mL/min/1.73 m(2)) 1 Kidney damage with normal or decreased GFR 90 2 Kidney damage with mild decrease in GFR 60-89 3 Moderate decrease in GFR 30-59 4 Severe decrease in GFR 15-29 5 Kidney failure <15 (or dialysis) 70 ---- RUN DATE: 11/24/09 [facility] NMI LIVE PAGE 1 RUN TIME: 1447 Specimen Inquiry RUN USER: INTERFACE -- Name: IDALMISCOLLEEN M Accfredis#: [id number] Status: REG REF Re11/21/09 Age/Sex: 38/F Unit#: [id number] Location: [facility] : 74 -- Specimen: [id number] SOUT Spec Date: 11/21/[address]: Elena caldera MD Spec Type: CYTOLOGY Received: 11/24/09-945 Copies to: SOURCE ECTOCERVICAL/ENDOCERVICAL Thin Prep with Reflex HPV Test PATIENT INFORMATION ACTUAL COLLECTION DATE: 11/21/09 LAST MENSTRUAL PERIOD: 11/05/09 DATE OF PRIOR SPECIMEN: 09/16/08 ADEQUACY OF SPECIMEN Satisfactory for evaluation * Transformation zone component identified * DIAGNOSIS NEGATIVE FOR INTRAEPITHELIAL LESION OR MALIGNANCY * This Pap test was evaluated with the assistance of the ThinPrep Pap Test Imaging System. The Pap Smear is a screening test designed to aid in the detection of premalign ant and malignant conditions of the uterine cervix. It is not a diagnostic procedure a nd should not be used as the sole means of detecting cervical cancer. Both false- positiv e and false-negative reports do occur. Depending on your risk status, a Pap smear marc uld be obtained and evaluated every one to three years. Initial evaluation performed by Loyd MANUEL(ASC) 11/24/09 Final Interpretation electronically signed by: Loyd MANUEL(ASC) 11/24/09 1446 -- -- DEPARTMENT OF PATHOLOGY, [address] [place] [address] [facility] Permit #[id number] Laurent Soliman M.D. Director Sonido Bustamante M.D. Bag Bailer Dir esau -- 71 Anion gap measurement may be of limited value in the presence of any alkalosis, especially in a combined acid base disorder. . 72 Note change in reference range as of 10/26/07. The change was based on recommendations from the [place] [employer]. 73 Please note change in reference range effective 07 . 74 Because ethnic data is not always readily available, this report includes an eGFR for both -Americans and non- Americans. The National Kidney Disease Education Program (NKDEP) does not endorse the use of the MDRD equation for patients that are not between the ages of 18 and 70, are , have extremes of body size, muscle mass, or nutritional status, or are non- or non-. According to the National Kidney Foundation, irrespective of diagnosis, the stage of the disease is based on the level of kidney function: Stage Description GFR(mL/min/1.73 m(2)) 1 Kidney damage with normal or decreased GFR 90 2 Kidney damage with mild decrease in GFR 60-89 3 Moderate decrease in GFR 30-59 4 Severe decrease in GFR 15-29 5 Kidney failure <15 (or dialysis) 75 Anion gap measurement may be of limited value in the presence of any alkalosis, especially in a combined acid base disorder. . 76 Note change in reference range as of 10/26/07. The change was based on recommendations from the [place] [employer]. 77 Please note change in reference range effective 07 . 78 A metabolite of Naproxen, O-desmethylnaproxen, has been shown to interfere with the [place]rass[place]rice method for measuring total bilirubin. Samples from patients who have taken Naproxen have shown spurious elevation in total bilirubin levels. 79 Because ethnic data is not always readily available, this report includes an eGFR for both -Americans and non- Americans. The National Kidney Disease Education Program (NKDEP) does not endorse the use of the MDRD equation for patients that are not between the ages of 18 and 70, are , have extremes of body size, muscle mass, or nutritional status, or are non- or non-. According to the National Kidney Foundation, irrespective of diagnosis, the stage of the disease is based on the level of kidney function: Stage Description GFR(mL/min/1.73 m(2)) 1 Kidney damage with normal or decreased GFR 90 2 Kidney damage with mild decrease in GFR 60-89 3 Moderate decrease in GFR 30-59 4 Severe decrease in GFR 15-29 5 Kidney failure <15 (or dialysis) 80 PLEASE NOTE NEW REFERENCE RANGES. 81 Reference range based on upright A.M. collection from subjects on ad tamiko sodium uptake. Test Performed by: [facility] Dpt of Lab Med and Pathology [address] [place] [address] Dental Associate: Mak Alaniz III, M.D. 82 -- REFERENCE VALUE -- (Peripheral vein specimen) Na-depleted, upright: Mean: 10.8 Range: 2.9-24 Na-replete, upright: Mean: 1.9 Range: <=0.6-4.3 Test Performed by: [facility] Dpt of Lab Med and Pathology [address] [place] [address] Dental Associate: Mak Alaniz III, M.D. 83 Test Performed by: [facility] Dpt of Lab Med and Pathology [address] [place] [address] Dental Associate: Mak Alaniz III, M.D. 84 REFERENCE RANGE: AM 8.7-22.4 PM LESS THAN 10 . 85 IgG band(s) ([place]): None Detected 86 IgM band(s) ([place]): None Detected 87 Specific serologic response to B. burgdorferi is not detected, but cannot rule out early infection during which low or undetectable antibody levels to B. burgdorferi may be present. If clinically indicated, a new serum specimen should be submitted in 7-14 days. Western blot should only be ordered on specimens that are positive or equivocal by a FDA-licensed Lyme disease antibody screening test (e.g., EIA). CDC criteria require >=5 bands for IgG or >=2 bands for IgM for the Western blot to be considered positive. Test Performed by: [facility] Dpt of Lab Med and Pathology [address] [place] [address] Dental Associate: Mak Alaniz III, M.D. 88 REFERENCE RANGE: AM 8.7-22.4 PM LESS THAN 10 . 89 -- REFERENCE VALUE -- 10-60 (a.m. draw) Test Performed by: [facility] Dpt of Lab Med and Pathology [address] [place] [address] Dental Associate: Mak Alaniz III, M.D. 90 RESULT: Results suggest past infection In most populations, at least 90% of the adult population will have been infected with EBV sometime in the past and therefore, will be positive for anti-VCA/IgG and anti-EBNA. Antibodies to EBNA develop 6-8 weeks after primary infection and remain present for life. Presence of VCA/IgM antibodies indicates recent primary infection with EBV. Test Performed by: [facility] Dpt of Lab Med and Pathology [address] [place] [address] Dental Associate: Mak Alaniz III, M.D. 91 Test Performed by: [facility] Dpt of Lab Med and Pathology [address] [place] [address] Dental Associate: Mak Alaniz III, M.D. 92 Test Performed by: [facility] Dpt of Lab Med and Pathology [address] [place] [address] Dental Associate: Mak Alaniz III, M.D. 93 NORMAL RANGE MALES 1 - 20 NORMALLY MENSTRUATING FEMALES - Follicular Phase 3 - 9 - Mid-Cycle Peak 4 - 23 - Luteal Phase 1 - 6 POSTMENOPAUSAL FEMALES 16 - 114 . 94 NORMAL RANGE MALES 2 - 12 NORMALLY MENSTRUATING FEMALES - Follicular Phase 1 - 18 - Mid-Cycle Peak 24 - 105 - Luteal Phase 0.6 - 20 POSTMENOPAUSAL FEMALES 15 - 62 . 95 EXPECTED RESULTS (pg/ml) MALES 20-75 POSTMENOPAUSAL FEMALES 20-88 NON FEMALES Mid-Follicular Phase 24-114 Periovulatory 62-534 Mid Luteal Phase 80-273 96 -- REFERENCE VALUE -- 1060 (a.m. draw) Test Performed by: [facility] Dpt of Lab Med and Pathology [address] [place] [address] Dental Associate: Mak Alaniz III, M.D. 97 REFERENCE RANGE: AM 8.7-22.4 PM LESS THAN 10 . 98 FEMALE REFERENCE RANGES FOR Progesterone: Follicular phase.......0.3 - 1.5 ng/ml Mid-luteal phase.......5.2 - 18.5 ng/ml Postmenopausal.........< 0.8 ng/ml 1st trimester.........4.7 - 50.0 ng/ml 2nd trimester.........19.4 - 45.3 ng/ml . 99 ---- RUN DATE: 09/17/08 [facility] NMI LIVE PAGE 1 RUN TIME: 1302 Specimen Inquiry RUN USER: INTERFACE -- Name: COLLEEN RAYGOZA Status: REG REF Re09/16/08 Age/Sex: 37/F Unit#: [id number] Location: [facility] : 74 -- Specimen: [id number] SOUT Spec Date: 09/16/[address]: Elena shah MD Spec Type: CYTOLOGY Received: 09/17/08-830 Copies to: SOURCE ECTOCERVICAL/ENDOCERVICAL Thin Prep with Reflex HPV Test PATIENT INFORMATION ACTUAL COLLECTION DATE: 09/16/08 LAST MENSTRUAL PERIOD: 09/11/08 ADEQUACY OF SPECIMEN Satisfactory for evaluation * Transformation zone component identified * DIAGNOSIS NEGATIVE FOR INTRAEPITHELIAL LESION OR MALIGNANCY * This Pap test was evaluated with the assistance of the ThinPrep Pap Test Imaging System. The Pap Smear is a screening test designed to aid in the detection of premalign ant and malignant conditions of the uterine cervix. It is not a diagnostic procedure a nd should not be used as the sole means of detecting cervical cancer. Both false- positiv e and false-negative reports do occur. Depending on your risk status, a Pap smear marc uld be obtained and evaluated every one to three years. Final Interpretation electronically signed by: Elías DAO([facility]) 09/17/08 130 2 -- -- DEPARTMENT OF PATHOLOGY, [address] [place] [address] [facility] Permit #[id number] Laurent Soliman M.D. Director Sonido Bustamante M.D. Bag Bailer Dir esau -- 100 Lymphopenia % 101 Anion gap measurement may be of limited value in the presence of any alkalosis, especially in a combined acid base disorder. . 102 Note change in reference range as of 10/26/07. The change was based on recommendations from the [place] [employer]. 103 Please note change in reference range effective 07 . 104 A metabolite of Naproxen, O-desmethylnaproxen, has been shown to interfere with the [place]rice method for measuring total bilirubin. Samples from patients who have taken Naproxen have shown spurious elevation in total bilirubin levels. 105 Because ethnic data is not always readily available, this report includes an eGFR for both -Americans and non- Americans. The National Kidney Disease Education Program (NKDEP) does not endorse the use of the MDRD equation for patients that are not between the ages of 18 and 70, are , have extremes of body size, muscle mass, or nutritional status, or are non- or non-. According to the National Kidney Foundation, irrespective of diagnosis, the stage of the disease is based on the level of kidney function: Stage Description GFR(mL/min/1.73 m(2)) 1 Kidney damage with normal or decreased GFR 90 2 Kidney damage with mild decrease in GFR 60-89 3 Moderate decrease in GFR 30-59 4 Severe decrease in GFR 15-29 5 Kidney failure <15 (or dialysis) 106 PLEASE NOTE CHANGE IN REFERENCE RANGE OF 03/14/06. 107 Please note change in reference range effective 08 . 108 -- REFERENCE VALUE -- 25-HYDROXY D TOTAL (D2+D3) Optimum levels in the normal population are 25-80 Test Performed by: [facility] Dpt of Lab Med and Pathology [address] [place] [address] Dental Associate: Mak Alaniz III, M.D. 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 Examination 625.0 Dyspareunia 626.4 Irregular Menstrual Cycle Office Visit 03/18/2011 1:30p Main Office Elena Bailon, V70.0 Examination General M.D., R.D. Medical Routine AT Health Care Facility V70.0 Examination General Medical Routine AT Health Care Facility V72.31 Routine Table Lever Operator Examination V72.31 Routine Table Lever Operator Examination 611.9 Breast Disorders Unspec 611.9 Breast Disorders Unspec 780.93 Memory Loss 780.93 Memory Loss Office Visit 02/01/2011 9:45a Main Office Padmini Morris, 611.9 Breast Disorders PROFESSIONAL SERVICES CONSULTANT-C Unspec Office Visit 11/21/2009 1:30p Main Office Elena Bailon, V72.31 Routine Table Lever Operator M.Roman, R.D. Examination V04.81 Need For Prophylactic Vaccination & Inoculation/Influenza V70.0 Examination General Medical Routine AT Health Care Facility 259.9 Endocrine Disorders Other Unspec Office Visit 10/14/2008 3:30p Main Office Elena Bailon, 733.90 Bone & Cartilage M.D., R.D. Disorder Unspec 780.79 Malaise And Fatigue Other 784.0 Headache Office Visit 09/16/2008 1:30p Main Office Elean Bailon, V72.31 Routine Table Lever Operator M.DTamika, R.D. Examination V70.0 Examination General Medical Routine AT Health Care Facility 780.79 Malaise And Fatigue Other 733.90 Bone & Cartilage Disorder Unspec Plan of Treatment 07/07/2018 - Elena Bailon M.D., R.D.Z00.00 Encounter for general adult medical examination without abnoNew Labs:Vitamin B12, Ordered: 07/07/18TSH ( Thyroid Stim Horm), Ordered: 07/07/18Acth, Ordered: 07/07/18Recommendations:The 5 Year Plan for your preventive health care is: Flu shot yearly. Annual exam at [facility]. Regular dental care. Eye exam yearly. Check your cholesterol and screen for diabetes periodically. Regular mammograms. Periodic bone density scans.R41.3 Other amnesiaNew Labs:Vitamin B12, Ordered: TSH (Thyroid Stim Horm), Ordered: 07/07/18Acth, Ordered: 07/07/18F32.89 Other specified depressive episodesNew Labs:Vitamin B12, Ordered: 07/07/18TSH ( Thyroid Stim Horm), Ordered: 07/07/18Acth, Ordered: 07/07/18R53.83 Other fatigue
--- OUTSIDE RECORDS SUMMARY | 2018-07-28 17:29 | XMS REPORT | Continuity of Care Document ---
:1970 External Reference #:[id number] Author Name Elena Bailon M.D., R.D. Address [address] [place] [id number] Care Team Providers Name Role Phone Elena Bailon M.D., R.D. Care Team Information Stenographer Secretary Unavailable Payers Date Identification Numbers Payment Provider Subscriber Effective: 2011 Policy Number: [id number] [facility] Guido Raygoza Expires: 2014 Group Number: [id number] [address] PayID: [id number] [place] [address] Effective: 2014 Policy Number: Herminio Mckeon [id number] Medicaid Expires: 2015 PayID: [id number] [address] [place] [address] Effective: 2015 Policy Number: [id number] [facility] Colleen Mckeon Expires: 2016 [place] Name[place] [address] [address] PayID: [id number] HIRAM Bennett [id number] Effective: 2016 Policy Number: Herminio Mckeon [id number] Medicaid Expires: 2018 PayID: [id number] [address] [place] [address] Effective: 2018 Policy Number: Excell[employer] YANDY Mckeon [id number] Group Name: [place] [address] [address] PayID: [id number] HIRAM Bennett [id number] Problems Active Problems Provider Date Disorder of [...] Date Description Comments Sex Unknown Marital Status Lives With Daughter Lives With Son Diet Healthy, Well Balanced Analyzes diet regularly online to make sure she is eating healthy. Eats frequently through the day. Eats more now that she had low cortisol. 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 Allergies, Adverse Reactions, Alerts Description No Known Drug Allergies Medications Active Medications SIG Qnty Indications Ordering Provider Date Vitamin D-3 5 by mouth every Elena Bailon, 02/10/2015 1000Unit day Zackary R.D. Capsules Norethindrone take 1 tablet by 84tabs Elena Bailon, 03/20/2014 0.35mg mouth every day Zackary R.DTamika Tablets at the same time Levothyroxine Sodium take 1 tablet by 30tabs Elena Bailon, 09/05/2013 mouth every day Zackary, R.D. 75mcg Tablets in the morning Multi-Vitamin/Fe 1 po qd Elena Bailon, 09/16/2008 Zackary R.D. Solution History Medications Wellbutrin XL take 1 tablet by 30tabs Elena 03/03/2015 - 300mg mouth every day [facility] 07/07/2018 Tablets ER 24HR Zackary, R.D. Wellbutrin XL 1 by mouth every day 30tabs [place] 02/10/2015 - 150mg MD Rayo 03/03/2015 Tablets ER 24HR Cipro 1 po bid for 3 days 6tabs N39.0 [facility] 02/10/2015 - 250mg Tablets [place], 07/07/2018 Zackary, R.Elías. Progesterone Cream apply 1/2-1 gram qd. 3MoSupply Elena 02/18/2014 - [facility], 03/20/2014 30G/G Zackary, R.D. Levothyroxine Sodium 1 by mouth every day 30tabs Padmini 08/07/2013 - [facility], 09/05/2013 100mcg Tablets [employer] [facility] [place] 08/07/2013 - 0.35mg [facility], 08/07/2013 [employer] Norethindrone 1 tablet by mouth 3pack [facility] 08/07/2013 - 0.35mg every day at the [facility], 11/21/2013 Tablets same time Zackary, R.D. Levothyroxine Sodium take one tablet by 90tabs Padmini 09/04/2011 - mouth daily. [facility], 08/07/2013 50mcg Tablets [employer] Levothyroxine Sodium Take One-Half (1/2) 90tabs Elena 07/15/2011 - To One Tablet Daily [facility], 09/04/2011 25mcg Tablets Zackary, R.D. Synthroid 1/2 to 1 po qd 90tabs [facility] 04/08/2011 - 25mcg [facility], 07/15/2011 Tablets Zackary, R.D. Concerta 1-2 po qd 60tabs [facility] 04/08/2011 - 18mg Tablets [facility], 07/07/2018 ER Zackary, R.D. Dicloxacillin Sodium 1 tablet q 6 hours 40caps 611.9 Padmini 02/01/2011 - for 10 days [facility], 03/19/2011 500mg Capsules [employer] To Whom It May Colleen has been Marcus Pérez, 01/08/2011 - Concern prescribed M.Roman 03/19/2011 hydrocortisone Cortef 10 mg in the am, 5 450tabs [facility] 11/23/2010 - 5mg Tablets mg at noon and at 5 [facility], 08/07/2013 pm, with one extra M.D., R.D. if especially rigorous physical training Progesterone Cream apply 1/2-1 gram qd. 3MoSupply [facility] 11/27/2009 - [facility], 02/18/2014 30G/G Zackary, R.D. OTC Progesterone [facility] 11/21/2009 - Cream [facility], 03/19/2011 Zackary, R.D. Hydrocortisone 10 mg in the in the 120tabs [facility] 11/21/2009 - 5mg morning, 5 mg at [facility], 07/07/2018 Tablets noon and at 5mg at M.DTamika, R.D. night, with one extra if especially rigorous physical training Hydrocortisone 2 po in am, 1 po 120units [facility] 11/20/2008 - 0.5% mid-day and 1 at 5 [facility], 11/21/2009 Cream pm, 1 extra qd if M.D., R.D. extra physical training. Mammogram Lumpy area left [facility] 09/16/2008 - breast 3 o'clock. [facility], 03/19/2011 No prior mammo. Zackary, R.DTamika Medications Administered in Office Medication SIG Qnty Indications Ordering Provider Date TB,Intradermal (PPD, [facility] 03/24/2015 [place]) Injection TB,Intradermal (PPD, Elena Bailon M.D., 02/10/2015 [place]) R.D. Injection Immunizations CPT Code Status Date Vaccine Lot # [id number] Given 03/11/2015 MMR (Measles,Mumps,Rubella) [id number] 92309 Given 02/13/2015 Influenza Virus Vaccine, Quadrivalent, 3 Yr > [id number] Quad, Preserv Free 75191 Given 12/06/2012 Influenza Vaccine-Preservative Free 3 Yrs And [id number] Above 21101 Given 03/16/2012 MMR (Measles,Mumps,Rubella) [id number] 97377 Given 02/15/2012 Menactra (meningococcal conjugate vaccine) [id number] 06479 Given 11/21/2009 Influenza Vaccine-Preservative Free 3 Yrs And [id number] Above 09972 Given 12/06/2007 Tetanus Vital Signs Date Vital Result Comment 07/07/2018 1:06pm Weight 110.00 lb Weight 49.896 kg BP Systolic 100 mmHg BP Diastolic 70 mmHg Heart Rate 60 /min Body Temperature 99.0 F Respiratory Rate 16 /min Height 61.5 inches 5'1.50" BMI (Body Mass Index) 20.4 kg/m2 Last Menstrual Period 1101046 O2 % BldC Oximetry 99 % 08/13/2015 [...] Mass Index) 18.8 kg/m2 Last Menstrual Period [id number] 07/27/2012 10:05am Weight 102.00 lb Weight 46.267 kg BP Systolic 98 mmHg BP Diastolic 60 mmHg Heart Rate 60 /min 03/18/2011 1:36pm Weight 100.50 lb Weight 45.587 kg BP Systolic 104 mmHg BP Diastolic 78 mmHg Heart Rate 68 /min Height 62 inches 5'2" BMI (Body Mass Index) 18.4 kg/m2 Last Menstrual Period [id number] 02/01/2011 9:50am Weight 102.00 lb Weight 46.267 kg BP Systolic 110 mmHg BP Diastolic 70 mmHg Heart Rate 68 /min 11/21/2009 1:38pm Weight 101.00 lb Weight 45.814 kg BP Systolic 120 mmHg BP Diastolic 80 mmHg Heart Rate 84 /min Height 61.25 inches 5'1.25" BMI (Body Mass Index) 18.9 kg/m2 Last Menstrual Period [id number] 10/14/2008 3:30pm Weight 99.00 lb Weight 44.906 kg BP Systolic 100 mmHg BP Diastolic 60 mmHg Heart Rate 72 /min 09/16/2008 1:34pm Weight 98.00 lb Weight 44.453 kg BP Systolic 116 mmHg BP Diastolic 70 mmHg Heart Rate 50 /min Height 61.25 inches 5'1.25" BMI (Body Mass Index) 18.4 kg/m2 Last Menstrual Period [id number] Results Test Date Facility Test Result H/L Range Note Laboratory test [facility] TSH (Thyroid 0.90 ?IU/mL N 0.34-5.60 1 finding 6 [phone] Stimulating Horm) CBC Auto Diff [facility] White Blood 7.2 10 ^3/uL N 3.5-10.8 6 [phone] Count Red Blood Count 4.34 10^6/uL N [...] Cells % 0 N Laboratory test 08/13/2015 [facility] Vitamin B12 675 pg/mL N 180-914 2 finding [phone] Comp Metabolic 08/13/2015 [facility] Sodium 137 mmol/ L N 133-145 Panel [phone] Potassium 4.4 mmol/L N 3.5-5.0 Chloride 100 [...] 96.5 N >60 Egfr 124.1 N >60 3 Rubella Igg Titer 02/13/2015 [facility] Rubella IgG Positive N 4 [phone] Antibody Rubella IgG Antibody Index 4.5 N 5 Rubeola Measles 02/13/2015 [facility] Rubeola (Measles ) Negative N 6 Igg AB [phone] IgG Antibody Rubeola IgG Antibody Index 0.4 N 7 Mumps Igg 02/13/2015 [facility] Mumps Virus IgG Positive N 8 [phone] Antibody Mumps IgG Antibody Index 1.9 N 9 Varicella 02/13/2015 [facility] Varicella-Zoster IgG Positive N 10 Zoster Igg AB [phone] Antibody Varicella IgG Antibody Index 2.0 N 11 Laboratory test finding 02/11/2015 [facility] Acth 17 pg/mL N 12 [phone] Free Cortisol Serum 0.60 g/dL N 13 Aldosterone <4.0 ng/dL N <=21 14 TSH (Thyroid Stimulating Horm) 1.32 ?IU/mL N 0.34-5.60 Vitamin D Total 25(Oh) 37.1 ng/mL N 30-50 Rubella Screen Immune IU/mL N Immune Mumps Igg 02/11/2015 [facility] Mumps Virus IgG Positive N 15 [phone] Antibody Mumps IgG Antibody Index 1.7 N 16 Rubeola Measles 02/11/2015 [facility] Rubeola (Measles ) Negative N 17 Igg AB [phone] IgG Antibody Rubeola IgG Antibody Index 0.4 N 18 Varicella 02/11/2015 [facility] Varicella-Zoster IgG Positive N 19 Zoster Igg AB [phone] Antibody Varicella IgG Antibody Index 1.7 N 20 Laboratory test 02/10/2015 [facility] Urine Culture And SEE RESULT 21 finding [phone] Sensitivities BELOW Urine DIP 02/10/2015 In House Lab Specific [place] 1.020 1.01- (607)- - 1.02 Urine pH 5 5-6 Leukocytes ++ Neg Urine Nitrites NEG Neg Total Protein, Urine NEG Neg Urine Glucose NORM Norm Urine Ketones NEG Neg Urobilinogen NORM Norm Urine Bilirubin NEG Neg Urine Blood 50 High Neg Laboratory test 08/08/2013 [facility] Acth <5.0 pg/ mL Abnormal 22 finding [phone] TSH (Thyroid Stimulating Horm) 0.14 IU/mL Low 0.34-5.60 Cortisol 15.13 g/dL N 23 Hepatitis 08/08/2013 [facility] Hepatitis B Nonreactive N Nonreactive Acute Panel [phone] Surface Antigen Hepatitis B Core IgM Nonreactive N Nonreactive Hepatitis A AB IgM Nonreactive N Nonreactive Hepatitis C Antibody Nonreactive N Nonreactive HIV 1/2 AB 08/08/2013 [facility] HIV 1 2 Nonreactive N Nonreactive 24 Evaluation [phone] Antibody Syphilis 08/08/2013 [facility] Syphilis IgG Nonreactive N Nonreactive 25 Screen [phone] RPR TNP N Nonreactive RPR Titer TNP N Pediatric/Maternal NO N Laboratory test 08/07/2013 [facility] Genital Culture (SEE NOTE) 26 finding [phone] Affirm Vaginal Dna Probe (SEE NOTE) 27 Laboratory test 08/07/2013 [facility] Cytology RUN DATE: 28 finding [phone] SEE NOTE> GC/Chlamydia 08/07/2013 [facility] GC/Chlamydia Rna ( SEE NOTE) 29 Amplified Rna [phone] HPV High Risk 08/07/2013 [facility] Human See Comment N 30 [phone] Papillomavirus Source HPV High Risk Type 16, PCR Negative N Negative HPV High Risk Type 18, PCR Negative N Negative HPV Other Risk types Negative N Negative 31 Laboratory test 04/30/2013 [facility] Hemoglobin A1c 5.2 % Less than 32 finding [phone] 6.0 Glucose 81 mg/dL 70-100 Basic Metabolic 04/20/2013 [facility] Sodium 139 mmol /L 133-145 Panel [phone] Potassium 4.3 mmol/L 3.7-5.6 Chloride 103 mmol/L 101-111 Co2 Carbon Dioxide 30 mmol/L 22-32 Anion Gap 6 mmol/L 2-11 Glucose 119 mg/dL High 70-100 Blood Urea Nitrogen 18 mg/dL 6-24 Creatinine 0.78 mg/dL 0.51-0.95 BUN/Creatinine Ratio 23.1 High 8-20 Calcium 9.7 mg/dL 8.6-10.3 Egfr Non- 81.8 >60 Egfr 105.2 >60 33 Testosterone 08/08/2012 [facility] Free 0.2 Abnormal 0.3-1.9 34 Free & Total [phone] Testosterone ng/dL ng/dl Testosterone 11 ng/dL 8-60 35 Human Papilloma 07/28/2012 [facility] Human Papillomavirus See Comment 36 Virus [phone] Source Human Papillomavirus High Risk Negative Negative 37 Laboratory test finding 07/27/2012 In House Lab HCG DIP Test neg Neg (607)- - Urine DIP 07/27/2012 In House Lab Leukocytes NEG Neg (607)- - Urine Nitrites NEG Neg Urine pH 5 5-6 Total Protein, Urine NEG Neg Urine Glucose NORM Norm Urine Ketones NEG Neg Urobilinogen NORM Norm Urine Bilirubin NEG Neg Urine Blood NEG Neg Specific [place] 1.010 1.01-1.02 Laboratory test 07/27/2012 [facility] Cytology RUN DATE: 38 finding [phone] 07/28/ <SEE NOTE> Laboratory test 07/27/2012 [facility] TSH (Thyroid 1.14 miu/mL 0.34- finding [phone] Stimulating Horm) 5.60 Estradiol 131 pg/mL 39 Progesterone 1.64 ng/mL 40 Follicle Stimulating Hormone 6.04 miu/mL 41 Laboratory test finding 07/14/2012 [facility] Acth 13 pg/mL 42 [phone] Free Cortisol 0.58 g/dL 43 Laboratory test finding 07/14/2012 [facility] Acth 13 pg/mL 44 [phone] Free Cortisol 0.58 g/dL 45 Laboratory test 02/15/2012 [facility] TSH (Thyroid 0.37 0.34-5.60 finding [phone] Stimulating MIU/ML Horm) Free T4 0.99 ng/mL 0.61-1.24 Total T3 1.02 ng/mL 0.5-1.7 Rubeola (Measles) IgG Antibody Negative 46 Rubella IgG Antibody Positive 47 Mumps Igg 02/15/2012 [facility] Mumps Virus IgG Negative 48 [phone] Antibody Mumps IgG Antibody Index 0.78 0.00-0.89 49 Laboratory test 08/26/2011 [facility] Acth 7.0 pg/mL Abnormal () 50 finding [phone] Cortisol 11.9 g/dL 51 Thyroxine Free 0.84 ng/dL 0.61-1.24 T3 Total 1.09 NG/ML 0.5-1.7 TSH 1.03 MIU/ML 0.34-5.60 Laboratory test 05/21/2011 [facility] TSH 0.74 MIU/ ML 0.34-5.60 finding [phone] T3 Total 1.05 NG/ML 0.5-1.7 Thyroxine Free 0.90 ng/dL 0.61-1.24 Laboratory test 03/24/2011 [facility] Progesterone 18.0 NG/ML 52, 53 finding [phone] CBC Auto Diff 03/24/2011 [facility] White Blood Count 4.9 CUMM 4.8- [phone] 10.8 Red Cell Count 4.51 CUMM 4.2-5.4 Hemoglobin [...] Eosinophils 0.1 0-0.6 Abs Basophils 0.1 0-0.2 Comp Metabolic Panel 03/24/2011 [facility] Sodium 138 mmol/L 135-145 [phone] Potassium 4.4 mmol/L 3.5-5.0 Chloride 104 mmol/L 101-111 Co2 (Carbon Dioxide) 28.0 mmol/L 22-32 Anion Gap 6.0 mmol/L 2-11 54 Glucose 71 mg/dL 70-100 BUN 9 mg/dL 6-24 Creatinine 0.7 mg/dL 0.50-1.40 One Over Creatinine 1.42 BUN/Creatinine Ratio 12.9 8-20 Calcium 9.2 mg/dL 8.1-9.9 Total Protein 6.7 GM/DL 6.2-8.1 Albumin 4.2 GM/DL 3.6-5.4 Globulin 2.5 GM/DL 2-4 Albumin/Globulin Ratio 1.7 1-3 Bilirubin Total 0.9 mg/dL 0.4-1.5 55 Alkaline Phosphatase 51 U/L 30-110 Alt (SGPT) 24 U/L 14-54 Ast (Sgot) 30 U/L 12-42 eGFR Non- 93.6 > 60 eGFR 120.4 > 60 56 Laboratory test 03/24/2011 [facility] Cortisol 10.5 g/dL 57 finding [phone] Acth 7.3 pg/mL Abnormal () 58 TSH 2.60 MIU/ML 0.34-5.60 Vitamin B12 903 pg/mL [phone] PTH Intact, Inc 03/24/2011 [facility] PTH Intact 2.7 PMOL/L 1.3-9.3 Total Calcium [phone] Calcium For Pthi 9.3 mg/dL 8.1-9.9 59 Laboratory 03/18/2011 [facility] Cytology ----- 60 test finding [phone] <SEE NOTE> Laboratory 07/10/2010 [facility] TSH 2.34 MIU/ML 0.34 test finding [phone] -5.6 0 Lipid Profile 11/21/2009 [facility] Triglyceride 69 mg/dL 40-2 (Trig/Chol/HDL [phone] ) Cholesterol 215 mg/dL High Less Than 200 61 High Density Lipoprotein 95 mg/dL High 40-60 62 Cholesterol/HDL Ratio 2.26 AVERAGE 1-4.44 Low Density Lipoprotein 106 mg/dL High Less Than 100 63 Laboratory test 11/21/2009 [facility] TSH 1.09 MIU/ ML 0.34-5.60 finding [phone] Comp Metabolic 11/21/2009 [facility] Sodium 138 mmol/ L 135-145 Panel [phone] Potassium 3.7 mmol/L 3.5-5.0 Chloride 100 mmol/L Low 101-111 Co2 (Carbon Dioxide) 32.0 mmol/L 22-32 Anion Gap 6.0 mmol/L 2-11 64 Glucose 86 mg/dL 70-100 65 BUN 15 mg/dL 6-24 Creatinine 0.60 mg/dL 0.50-1.40 One Over Creatinine 1.60 BUN/Creatinine Ratio 25.0 High 8-20 Calcium 9.5 mg/dL 8.1-9.9 Total Protein 6.5 GM/DL 6.2-8.1 Albumin 4.3 GM/DL 3.6-5.4 Globulin 2.2 GM/DL 2-4 Albumin/Globulin Ratio 2.0 1-3 Bilirubin Total 0.8 mg/dL 0.4-1.5 66 Alkaline Phosphatase 72 U/L 30-110 Alt (SGPT) 45 U/L 14-54 Ast (Sgot) 53 U/L High 12-42 eGFR Non- 120.2 > 60 eGFR 145.5 > 60 67 Urine DIP 11/21/2009 In House Lab Leukocytes NEG Neg (607)- - Urine Nitrites NEG Neg Urine pH 7 High 5-6 Total Protein, Urine NEG Neg Urine Glucose NORM Norm Urine Ketones NEG Neg Urobilinogen NORM Norm Urine Bilirubin NEG Neg Urine Blood TRACE Neg Specific [place] NA Low 1.01-1.02 Laboratory test 11/21/2009 [facility] Cytology ------ <SEE 68 finding [phone] NOTE> Laboratory test 07/03/2009 [facility] Prolactin 11.68 NG/ML 1.0- finding [phone] 25.0 Testosterone Total 30.7 ng/dL 10-75 Basic Metabolic 07/03/2009 [facility] Sodium 139 mmol /L 135-145 Panel [phone] Potassium 3.8 mmol/L 3.5-5.0 Chloride 101 mmol/L 101-111 Co2 (Carbon Dioxide) 30.0 mmol/L 22-32 Anion Gap 8.0 mmol/L 2-11 69 Glucose 85 mg/dL 70-100 70 BUN 11 mg/dL 6-24 Creatinine 0.70 mg/dL 0.50-1.40 One Over Creatinine 1.40 BUN/Creatinine Ratio 15.7 8-20 Calcium 9.2 mg/dL 8.1-9.9 71 eGFR Non- 100.6 > 60 eGFR 121.8 > 60 72 Comp Metabolic Panel 12/09/2008 [facility] Sodium 139 mmol/L 135-145 [phone] Potassium 4.0 mmol/L 3.5-5.0 Chloride 105 mmol/L 101-111 Co2 (Carbon Dioxide) 29.0 mmol/L 22-32 Anion Gap 5.0 mmol/L 2-11 73 Glucose 109 mg/dL High 70-100 74 BUN 8 mg/dL 6-24 Creatinine 0.70 mg/dL 0.50-1.40 One Over Creatinine 1.40 BUN/Creatinine Ratio 11.4 8-20 Calcium 9.3 mg/dL 8.1-9.9 75 Total Protein 6.3 GM/DL 6.2-8.1 Albumin 3.9 GM/DL 3.6-5.4 Globulin 2.4 GM/DL 2-4 Albumin/Globulin Ratio 1.6 1-3 Bilirubin Total 0.7 mg/dL 0.4-1.5 76 Alkaline Phosphatase 65 U/L 30-110 Alt (SGPT) 21 U/L 14-54 Ast (Sgot) 26 U/L 12-42 eGFR Non- 101.2 > 60 eGFR 122.5 > 60 77 Laboratory test 12/09/2008 [facility] Thyroxine Free 0.65 NG/ML 0.61-1.24 78 finding [phone] TSH 1.98 MIU/ML 0.34-5.60 Aldosterone <4.0 ng/dL <=21 79 Renin <0.6 ng/mL/h () 80 Thyroperoxidase AB 0.9 IU/mL <9.0 81 Laboratory test 10/30/2008 [facility] Cortisol 16.3 g/dL 82 finding [phone] Lyme Western 10/21/2008 [facility] Lyme Disease Negative Negative 83 Blot Specialty [phone] Igg Western Blot Lyme Disease Igm Western Blot Negative Negative 84 Lyme Disease Interpretation . () 85 Laboratory test 10/21/2008 [facility] Cortisol 7.8 g/dL 86 finding [phone] Acth 7.7 pg/mL Abnormal () 87 Destiney Conner 10/14/2008 [facility] Ebv Vca Positive Negative Comprehensive [phone] Igg Ebv Vca Igm Negative Negative Ebna Positive Negative Ebv Interpretation SEE BELOW () 88 Laboratory test 10/14/2008 [facility] CMV Igm Negative Negative 89 finding [phone] CMV Igg <4 AU/mL <4 90 CPK (Creatine Kinase) 115 U/L 0-170 Erythrocyte Sed Rate 13 MM/HR 0-15 Lynnette (Antinuclear 10/14/2008 [facility] Antinuclear AB NEGATIVE Negative Antibodies) [phone] Laboratory test 10/14/2008 [facility] Rheumatoid < 20.0 Less Than finding [phone] Factor IU/mL 20 Laboratory test 09/30/2008 [facility] FSH 5.93 MIU/ ML 91 finding [phone] Lutenizing Hormone 20.77 MIU/ML 92 Estradiol 42 pg/mL 93 Prolactin 11.76 NG/ML 1.0-25.0 Acth 12 pg/mL () 94 Cortisol 7.7 g/dL 95 Progesterone 0.5 NG/ML 96 Laboratory test 09/16/2008 [facility] Cytology ------ 97 finding [phone] <SEE NOTE> Laboratory test 09/16/2008 [facility] TSH 1.73 MIU/ ML 0.34 finding [phone] 0 Iron & Iron 09/16/2008 [facility] Iron Total 81 g/ dL 28-1 Binding [phone] Capacity Unsaturated Iron Binding 371 g/dL Total Iron Binding Capacity 452 g/dL High 250-450 % Iron Saturation 18 % 15-55 CBC With 09/16/2008 [facility] White Blood 5.1 CUMM 4.8-10.8 Electronic Diff [phone] Count Red Cell Count 4.22 CUMM 4.2-5.4 [...] Eosinophils 0 0-0.6 Abs Basophils 0 0-0.2 98 Comp Metabolic Panel 09/16/2008 [facility] Sodium 138 mmol/L 135-145 [phone] Potassium 3.8 mmol/L 3.5-5.0 Chloride 103 mmol/L 101-111 Co2 (Carbon Dioxide) 29.0 mmol/L 22-32 Anion Gap 6.0 mmol/L 2-11 99 Glucose 83 mg/dL 70-100 100 BUN 10 mg/dL 6-24 Creatinine 0.70 mg/dL 0.50-1.40 One Over Creatinine 1.40 BUN/Creatinine Ratio 14.3 8-20 Calcium 9.5 mg/dL 8.1-9.9 101 Total Protein 6.3 GM/DL 6.2-8.1 Albumin 4.3 GM/DL 3.6-5.4 Globulin 2.0 GM/DL 2-4 Albumin/Globulin Ratio 2.2 1-3 Bilirubin Total 0.5 mg/dL 0.4-1.5 102 Alkaline Phosphatase 84 U/L 30-110 Alt (SGPT) 28 U/L 14-54 Ast (Sgot) 38 U/L 12-42 eGFR Non- 101.2 > 60 eGFR 122.5 > 60 103 PTH Intact, Inc 09/16/2008 [facility] PTH Intact 2.7 PMOL/L 1.3-9.3 104 Total Calcium [phone] Calcium For Pthi 9.2 mg/dL 8.1-9.9 105 Vitamin D.25 09/16/2008 [facility] 25-Hydroxy Vitamin <4.0 ng/mL () Hydroxy [phone] D2 25-Hydroxy Vitamin D3 48 ng/mL () 25-Hydroxy Vitamin D Total 48 ng/mL () 106 Laboratory test 09/16/2008 [facility] Vitamin B12 599 pg/mL [phone] finding [phone] Urine DIP 09/16/2008 In House Lab Leukocytes NEG Neg (607)- - Urine Nitrites NEG Neg Urine pH 5 5-6 Total Protein, Urine NEG Neg Urine Glucose NORM Norm Urine Ketones NEG Neg Urobilinogen NORM Norm Urine Bilirubin NEG Neg Urine Blood NEG Neg Specific [place] NA Low 1.01-1.02 1 [id number] 2 Normal Range 180 to 914 Indeterminate Range 145 to 180 Deficient Range <145 3 Because ethnic data is not always readily [...] 15-29 5 Kidney failure <15 (or dialysis) 4 Results suggest response to immunization or prior exposure to the virus. REFERENCE VALUE Vaccinated: Positive (>=1.0 AI) Unvaccinated: Negative (<=0.7 AI) 5 Test Performed by: [facility] [place] [address] Senior Sql Database Developer: Markos Galan II, M.D., Ph.D. 6 REFERENCE VALUE Vaccinated: Positive (>=1.1 AI) Unvaccinated: Negative (<=0.8 AI) 7 Test Performed by: [facility] [place] [address] Senior Sql Database Developer: Markos aGlan II, M.D., Ph.D. 8 Results suggest response to immunization or prior exposure to the virus. REFERENCE VALUE Vaccinated: Positive (>=1.1 AI) Unvaccinated: Negative (<=0.8 AI) 9 Test Performed by: [facility] [place] [address] Senior Sql Database Developer: Markos Galan II, M.D., Ph.D. 10 Results suggest response to immunization or prior exposure to the virus. REFERENCE VALUE Vaccinated: Positive (>=1.1 AI) Unvaccinated: Negative (<=0.8 AI) 11 Test Performed by: [facility] [place] [id number] Senior Sql Database Developer: Markos Galan II, M.D., Ph.D. 12 REFERENCE VALUE 10-60 (a.m. collection) Test Performed by: [place] [address] Senior Sql Database Developer: Markos Galan II, M.D., Ph.D. 13 Adult Reference Ranges for Cortisol, Free, LC/MS/MS: 8:00 - 10:00 AM 0.07-0.93 mcg/dL 4:00 - 6:00 PM 0.04-0.45 mcg/dL 10:00 - 11:00 PM 0.04-0.35 mcg/dL Test Performed by: [facility] [id number] [place] [phone] ADDITIONAL INFORMATION Reference range for patients 11 years and older is based on upright A.M. collection from subjects without sodium restrictions. Test Performed by: [facility] [place] [address] Senior Sql Database Developer: Markos Galan II, M.D., Ph.D. 15 Results suggest response to immunization or prior exposure to the virus. REFERENCE VALUE Vaccinated: Positive (>=1.1 AI) Unvaccinated: Negative (<=0.8 AI) 16 Test Performed by: [place] [address] Senior Sql Database Developer: Markos Galan II, M.D., Ph.D. 17 REFERENCE VALUE Vaccinated: Positive (>=1.1 AI) Unvaccinated: Negative (<=0.8 AI) 18 Test Performed by: [address] [address] Senior Sql Database Developer: Markos Galan II, M.D., Ph.D. 19 Results suggest response to immunization or prior exposure to the virus. REFERENCE VALUE Vaccinated: Positive (>=1.1 AI) Unvaccinated: Negative (<=0.8 AI) 20 Test Performed by: [address] [address] Senior Sql Database Developer: Markos Galan II, M.D., Ph.D. 21 SEE RESULT BELOW Name: COLLEEN MCKEON : [address]: Elena Bailon MD Acct: [id number] Unit: [id number] AGE: 44 Location: [facility] Re02/10/15 SEX: F Status: REG REF SPEC: [id number] REJI: 02/10/15-160 [facility] [address]: Elena Bailon MD REQ: [id number] RECD: 02/10/15 STATUS: COMP _ S[facility]: [facility] ORDERED: Urine Culture Procedure Result Reported Site Urine Culture Final 02/12/15- 0835 ML No Growth (<1,000 CFU/mL) * ML - MAIN LAB ([facility]) . END OF REPORT * ML=Testing performed at Main Lab DEPARTMENT OF PATHOLOGY, [address] [place] [address] Laurent Soliman M.D. Director [facility] # [id number] 22 -- REFERENCE VALUE -- 10-60 (a.m. collection) Test Performed by: [address] [address] Senior Sql Database Developer: Mak Alaniz III, M.D. 23 AM 8.7-22.4 PM <10 24 It is recognized that currently available assays [...] 95% confidence interval of 99.78 to 99.96%. 25 Warning: A positive result is not useful for establishing a diagnosis of syphilis. In most situations, such a result may reflect a prior treated infection; a negative result can exclude a diagnosis of syphilis except for incubating or early primary disease. 26 RUN DATE: 08/09/13 [facility] LAB LIVE PAGE 1 RUN TIME: [address] [place] [address] Specimen Inquiry Name: COLLEEN RAYGOZA : [address]: Padmini Morris NP Acct: [id number] Unit: [id number] AGE: 42 Location: [facility] Re08/07/13 SEX: F Status: REG REF SPEC: [id number] REJI: 08/07/13-[address]: Padmini Morris NP REQ: [id number] RECD: 08/07/13 STATUS: COMP _ SOURCE: VAGINAL SPDESC: ORDERED: Genital Culture, Affirm QUERIES: Medent Number [id number] Procedure Result Verified Site Genital Culture Final [...] performed at Main Lab DEPARTMENT OF PATHOLOGY, [facility] [employer] [place] [address] Laurent Soliman M.D. Director [facility] # [id number] 27 RUN DATE: 08/08/13 [facility] LAB LIVE PAGE 1 RUN TIME: [address] [place] [address] Specimen Inquiry Name: COLLEEN RAYGOZA : [address]: Padmini Morris NP Acct: [id number] Unit: [id number] AGE: 42 Location: [facility] Re08/07/13 SEX: F Status: REG REF SPEC: [id number] REJI: 08/07/13-[address] [facility] [address]: Padmini Morris NP REQ: [id number] RECD: 08/07/13 STATUS: RES _ SOURCE: VAGINAL SPDESC: ORDERED: Genital Culture, Affirm QUERIES: Medent Number [id number] Procedure Result Verified Site Genital Culture PENDING [...] performed at Main Lab DEPARTMENT OF PATHOLOGY, [facility] [employer] [place] [address] Laurent Soliman M.D. Director [facility] # [id number] RUN DATE: 08/08/13 [facility] LAB LIVE PAGE 2 RUN TIME: 112 [facility] [employer] [place], [place] [address] Specimen Inquiry Patient: COLLEEN RAYGOZA [id number] (Continued) Specimen: [id number] Collected: 08/07/13 Received: 08/07/13-1803 (Continued) Procedure Result Verified Site Affirm Vaginal DNA Probe Final (continued) 08/08/13- 1123 END OF REPORT * ML=Testing performed at Main Lab DEPARTMENT OF PATHOLOGY, [address] [place] [address] Laurent Soliman M.D. Director [facility] # [id number] 28 RUN DATE: 08/08/13 [facility] LAB LIVE PAGE 1 RUN TIME: [address] [place] [address] Specimen Inquiry Name: IDALMIS,COLLEEN Seb : [address]: Padmini Morris NP Acct: [id number] Unit: [id number] AGE: 42 Location: [facility] Re08/07/13 SEX: F Status: REG REF SPEC: [id number] REJI: 08/07/13-[address]: Padmini Morris QUILL MACHINE OPERATOR REQ: [id number] RECD: 08/07/13086 STATUS: SOUT _ ORDERED: IMAGE ANALYSIS, PAP SM PATH REV, HPV/Thin Prep FINAL DIAGNOSIS EPITHELIAL CELL ABNORMALITIES Atypical squamous cells of undetermined significance Endometrial cells in a woman over or equal to 40 years of age COMMENTS: Specimen sent to [employer] in [place], [place] on 08/08/13 by [id number] at 1357. Results will be reported separately. [...] Signed (signature on file) Laurent Soliman MD [id number] This Pap test was evaluated with the assistance of the GameLayers[employer] Test Imaging System. Due to cytologic findings at the rigging and controls aircraft mechanic microscope, comprehensive manual rescreening by a Legal Records Manager may be required. The Pap Smear is [...] performed at Main Lab DEPARTMENT OF PATHOLOGY, [facility] [employer] [place] [address] Laurent Soliman M.D. Director [place] # [id number] RUN DATE: 08/08/13 [facility] LAB LIVE PAGE 1 RUN TIME: 1511 [facility] [employer] [place], [place] [address] Specimen Inquiry Patient: COLLEEN RAYGOZA [id number] (Continued) 29 RUN DATE: 08/10/13 [facility] LAB LIVE PAGE 1 RUN TIME: [address] [place] [address] Specimen Inquiry Name: COLLEEN RAYGOZA : [address]: Padmini Morris NP Acct: [id number] Unit: [id number] AGE: 42 Location: [facility] Re08/07/13 SEX: F Status: REG REF SPEC: [id number] REJI: 08/07/13-[address] [facility] [address]: Padmini Morris NP REQ: [id number] RECD: 08/07/13-1755 STATUS: COMP _ SOURCE: THIN SPDESC: ORDERED: GENESIS/Eva RNA QUERIES: Medent Number [id number] Procedure Result Verified Site Chlamydia Trachomatis RNA [...] performed at Main Lab DEPARTMENT OF PATHOLOGY, [facility] [employer] [place], [place] [address] Laurent Soliman M.D. Director [facility] # [id number] RUN DATE: 08/10/13 [facility] LAB LIVE PAGE 2 RUN TIME: 1352 [facility] [employer] [place], [place] [address] Specimen Inquiry Patient: COLLEEN RAYGOZA [id number] (Continued) Specimen: [id number] Collected: 08/07/13-1509 Received: 08/07/13 (Continued) Procedure Result Verified Site GC (N. gonorrhoeae) RNA Final (continued) 08/10/13- 2688 Performance characteristics for detecting C. trachomatis and N. gonorrhoeae are derived from high prevalence populations. Positive results in low prevalence populations should be interpreted carefully with the understanding that the likelihood of a false positive may be higher than a true positive. END OF REPORT * ML=Testing performed at Main Lab DEPARTMENT OF PATHOLOGY, [address] [place] [address] Laurent Soliman M.D. Director [facility] # [id number] 30 RESULT: Ectocervical/Endocervical 31 The following Other High Risk HPV types were not detected: 31, 33, 35, 39, 45, 51, 52, 56, 58, 59, 66, and 68 Test Performed by: [place] [id number] Senior Sql Database Developer: Mak Alaniz III, M.D. 32 Therapeutic target for the treatment of diabetes Mellitus patients is <7% HBA1C, and in selective patients <6.0%.Please refer to [place] [employer] Association Diabetic care guidelines for further information. 33 Because ethnic data is not always readily [...] 15-29 5 Kidney failure <15 (or dialysis) 34 Testing performed by [facility]. 35 Testing performed by Liquid Chromatography-Tandem Mass Spectrometry (LC-MS/MS). Test Performed by: [address] [address] Senior Sql Database Developer: Mak Alaniz III, M.D. 36 RESULT: Ectocervical/Endocervical 37 For types 16, 18, 31, 33, 35, 39, 45, 51, 52, 56, 58, 59 and 68. Test Performed by: [facility] - [address] [address] Senior Sql Database Developer: Mak Alaniz III, M.D. 38 RUN DATE: 07/28/12 [facility] LAB LIVE PAGE 1 RUN TIME: [address] [place] [address] Specimen Inquiry Name: COLLEEN RAYGOZA : [address]: Elena Bailon MD Acct: [id number] Unit: [id number] AGE: 41 Location: [facility] Re07/27/12 SEX: F Status: REG REF SPEC: [id number] REJI: 07/27/12-[address]: Elena Bailon MD REQ: [id number] RECD: 07/27/12 STATUS: SOUT _ ORDERED: IMAGE ANALYSIS, HPV / Thin Prep FINAL DIAGNOSIS Negative for Intraepithelial lesion or Malignancy COMMENTS: Specimen sent to [facility] in [place], [place] on 07/28/12 by [id number] at 1051. Results will be reported separately. A. Ectocervical/Endocervical Specimen Adequacy: Satisfactory of evaluation Transformation zone component identified Patient Information: HPV: High risk HPV DNA testing regardless of pap results. Actual Specimen Date: 07/27/12 LMP If Unknown: irregular 1-2 wks ago Date of Last Specimen: 03/18/11 Signed (signature on file) Cristina Alva CT (ASCP) 07/28/12 1102 This Pap test was evaluated with the assistance of the [employer] Test Imaging System. Due to cytologic findings at the rigging and controls aircraft mechanic microscope, comprehensive manual rescreening by a Legal Records Manager may be required. The Pap Smear is [...] performed at Main Lab DEPARTMENT OF PATHOLOGY, [address] [place] [address] Laurent Soliman M.D. Director [facility] Permit #[id number] Postmenopausal Females < 20 Ovulating females: by day in cycle relative to LH Peak Follicular phase - 12 10-50 - 4 60-200 Mid-cycle - 1 120-375 Luteal phase + 2 50-155 + 6 60-260 + 12 15-115 40 R Female reference ranges for Progesterone: Follicular phase.......0.3 - 1.5 ng/ml Mid-luteal phase.......5.2 - 18.5 ng/ml Postmenopausal.........< 0.8 ng/ml 1st trimester.........4.7 - 50.0 ng/ml 2nd trimester.........19.4 - 45.3 ng/ml 41 Normally menstruating females - Follicular phase 3 - 9 - Mid-cycle peak 4 - 23 - Luteal phase 1 - 6 Postmenopausal females 16 - 114 42 -- REFERENCE VALUE -- 10-60 (a.m. collection) Test Performed by: [place] [address] Senior Sql Database Developer: Mak Alaniz III, M.D. 43 Adult Reference Ranges for Cortisol, Free, LC/MS/MS: 8:00 - 10:00 AM 0.07-0.93 mcg/dL 4:00 - 6:00 PM 0.04-0.45 mcg/dL 10:00 - 11:00 PM 0.04-0.35 mcg/dL Test Performed by: [facility] [place] [address] [place] [phone] 44 -- REFERENCE VALUE -- 10-60 (a.m. collection) Test Performed by: [place] [address] Senior Sql Database Developer: Mak Alaniz III, M.D. 45 Adult Reference Ranges for Cortisol, Free, LC/MS/MS: 8:00 - 10:00 AM 0.07-0.93 mcg/dL 4:00 - 6:00 PM 0.04-0.45 mcg/dL 10:00 - 11:00 PM 0.04-0.35 mcg/dL Test Performed by: [facility] [address] [place] [phone] 46 -- REFERENCE VALUE -- Negative Test Performed by: [place] [address] Senior Sql Database Developer: Mak Alaniz III, M.D. 47 -- REFERENCE VALUE -- Negative Test Performed by: [place] [address] Senior Sql Database Developer: Mak Alaniz III, M.D. 48 -- REFERENCE VALUE -- Negative 49 Test Performed by: [place] [address] Senior Sql Database Developer: Mak Alaniz III, M.D. 50 -- REFERENCE VALUE -- 10-60 (a.m. collection) Test Performed by: [address] [address] Senior Sql Database Developer: Mak Alaniz III, M.D. 51 REFERENCE RANGE: AM 8.7-22.4 PM LESS THAN 10 . 52 FASTING 53 FEMALE REFERENCE RANGES FOR Progesterone: Follicular phase.......0.3 - 1.5 ng/ml Mid-luteal phase.......5.2 - 18.5 ng/ml Postmenopausal.........< 0.8 ng/ml 1st trimester.........4.7 - 50.0 ng/ml 2nd trimester.........19.4 - 45.3 ng/ml . 54 Anion gap measurement may be of limited value in the presence of any alkalosis, especially in a combined acid base disorder. . 55 A metabolite of Naproxen, O-desmethylnaproxen, has been shown to interfere with the Jendrassik-Patrice method for measuring total bilirubin. Samples from patients who have taken Naproxen have shown spurious elevation in total bilirubin levels. 56 Because ethnic data is not always readily [...] 15-29 5 Kidney failure <15 (or dialysis) 57 REFERENCE RANGE: AM 8.7-22.4 PM LESS THAN 10 . 58 -- REFERENCE VALUE -- 10-60 (a.m. collection) Test Performed by: [facility] Dpt of Lab Med and Pathology [address] [place] [address] Senior Sql Database Developer: Mak Alaniz III, M.D. 59 Please note change in reference range effective 08 . 60 ---- RUN DATE: 03/19/11 [facility] NMI LIVE PAGE 1 RUN TIME: 1745 Specimen Inquiry RUN USER: INTERFACE -- Name: IDALMISCOLLEEN M Status: REG REF Re03/18/11 Age/Sex: 40/F Unit#: [id number] Location: [facility] : 74 -- Specimen: [id number] SOUT Spec Date: 03/18/[address]: Elena caldera [...] three years. Initial evaluation performed by Loyd MANUEL([facility]) 03/19/11 Final Interpretation electronically signed by: Loyd MANUEL([facility]) 03/19/11 1746 -- -- DEPARTMENT OF PATHOLOGY, [address] [place] [address] [facility] Permit #[id number] Laurent Soliman M.D. Director Sonido Bustamante M.D. Pole Frame Construction Worker Dir esau -- 61 CHOLESTEROL INTERPRETATION: Desirable: Less than 200 MG/DL Borderline-High Risk: 200-239 MG/DL High-Risk: 240 MG/DL and over 62 HDL INTERPRETATION: Undesirable: High Risk: Less than 40 MG/DL Desirable: Low Risk: Greater than 60 MG/DL 63 LDL INTERPRETATION: Low Risk Optimal Level: LDL Less than 100 MG/DL Near or Above Optimal: LDL 100-129 MG/DL Borderline High Risk: LDL 130-159 MG/DL High Risk: LDL 160-189 MG/DL Very High Risk: LDL Greater than 189 MG/DL 64 Anion gap measurement may be of limited value in the presence of any alkalosis, especially in a combined acid base disorder. . 65 Note change in reference range as of 10/26/07. The change was based on recommendations from the [place] Diabetes [employer]. 66 A metabolite of Naproxen, O-desmethylnaproxen, has been shown to interfere with the Jendrassik-Patrice method for measuring total bilirubin. Samples from patients who have taken Naproxen have shown spurious elevation in total bilirubin levels. 67 Because ethnic data is not always readily [...] 15-29 5 Kidney failure <15 (or dialysis) 68 ---- RUN DATE: 11/24/09 [facility] NMI LIVE PAGE 1 RUN TIME: 1447 Specimen Inquiry RUN USER: INTERFACE -- Name: COLLEEN RAYGOZA Status: REG REF Re11/21/09 Age/Sex: 38/F Unit#: [id number] Location: [facility] : 74 -- Specimen: [id number] SOUT Spec Date: 11/21/[address]: Elena [...] was evaluated with the assistance of the GameLayersPrep Pap Test Imaging System. The Pap Smear [...] three years. Initial evaluation performed by Loyd MANUEL([facility]) 11/24/09 Final Interpretation electronically signed by: Loyd MANUEL([facility]) 11/24/09 1446 -- -- DEPARTMENT OF PATHOLOGY, [address] [place] [address] [facility] Permit #[id number] Laurent Soliman M.D. Director Sonido Bustamante M.D. [employer] Construction Worker Dir esau -- 69 Anion gap measurement may be of limited value in the presence of any alkalosis, especially in a combined acid base disorder. . 70 Note change in reference range as of 10/26/07. The change was based on recommendations from the [place] Diabetes [employer]. 71 Please note change in reference range effective 07 . 72 Because ethnic data is not always readily [...] 15-29 5 Kidney failure <15 (or dialysis) 73 Anion gap measurement may be of limited value in the presence of any alkalosis, especially in a combined acid base disorder. . 74 Note change in reference range as of 10/26/07. The change was based on recommendations from the [place] [employer]. 75 Please note change in reference range effective 07 . 76 A metabolite of Naproxen, O-desmethylnaproxen, has been shown to interfere with the Jendrassik-Patrice method for measuring total bilirubin. Samples from patients who have taken Naproxen have shown spurious elevation in total bilirubin levels. 77 Because ethnic data is not always readily [...] 15-29 5 Kidney failure <15 (or dialysis) 78 PLEASE NOTE NEW REFERENCE RANGES. 79 Reference range based on upright A.M. collection from subjects on ad tamiko sodium uptake. Test Performed by: [facility] Dpt of Lab Med and Pathology [address] [place] [address] Senior Sql Database Developer: Mak Alaniz III, M.D. 80 -- REFERENCE VALUE -- (Peripheral vein specimen) Na-depleted, upright: Mean: 10.8 Range: 2.9-24 Na-replete, upright: Mean: 1.9 Range: <=0.6-4.3 Test Performed by: [facility] Dpt of Lab Med and Pathology [address] [place] [address] Senior Sql Database Developer: Mak Alaniz III, M.D. 81 Test Performed by: [facility] Dpt of Lab Med and Pathology [address] [place] [address] Senior Sql Database Developer: Mak Alaniz III, M.D. 82 REFERENCE RANGE: AM 8.7-22.4 PM LESS THAN 10 . 83 IgG band(s) ([place]): None Detected 84 IgM band(s) ([place]): None Detected 85 Specific serologic response to B. burgdorferi is [...] to be considered positive. Test Performed by: [facility] Dpt of Lab Med and Pathology [address] [place] [address] Senior Sql Database Developer: Mak Alaniz III, M.D. 86 REFERENCE RANGE: AM 8.7-22.4 PM LESS THAN 10 . 87 -- REFERENCE VALUE -- 10-60 (a.m. draw) Test Performed by: [facility] Dpt of Lab Med and Pathology [address] [place] [address] Senior Sql Database Developer: Mak Alaniz III, M.D. 88 RESULT: Results suggest past infection In most populations, at least 90% of the adult population will have been infected with EBV sometime in the past and therefore, will be positive for anti-VCA/IgG and anti-EBNA. Antibodies to EBNA develop 6-8 weeks after primary infection and remain present for life. Presence of VCA/IgM antibodies indicates recent primary infection with EBV. Test Performed by: [facility] Dpt of Lab Med and Pathology [address] [place] [address] Senior Sql Database Developer: Mak Alaniz III, M.D. 89 Test Performed by: [facility] Dpt of Lab Med and Pathology [address] [place] [address] Senior Sql Database Developer: Mak Alaniz III, M.D. 90 Test Performed by: [facility] Dpt of Lab Med and Pathology [address] [place] [address] Senior Sql Database Developer: Mak Alaniz III, M.D. 91 NORMAL RANGE MALES 1 - 20 NORMALLY MENSTRUATING FEMALES - Follicular Phase 3 - 9 - Mid-Cycle Peak 4 - 23 - Luteal Phase 1 - 6 POSTMENOPAUSAL FEMALES 16 - 114 . 92 NORMAL RANGE MALES 2 - 12 NORMALLY MENSTRUATING FEMALES - Follicular Phase 1 - 18 - Mid-Cycle Peak 24 - 105 - Luteal Phase 0.6 - 20 POSTMENOPAUSAL FEMALES 15 - 62 . 93 EXPECTED RESULTS (pg/ml) MALES 20-75 POSTMENOPAUSAL FEMALES 20-88 NON FEMALES Mid-Follicular Phase 24-114 Periovulatory 62-534 Mid Luteal Phase 80-273 94 -- REFERENCE VALUE -- 10-60 (a.m. draw) Test Performed by: [facility] Dpt of Lab Med and Pathology [address] [place] [address] Senior Sql Database Developer: Mak Alaniz III, M.D. 95 REFERENCE RANGE: AM 8.7-22.4 PM LESS THAN 10 . 96 FEMALE REFERENCE RANGES FOR Progesterone: Follicular phase.......0.3 - 1.5 ng/ml Mid-luteal phase.......5.2 - 18.5 ng/ml Postmenopausal.........< 0.8 ng/ml 1st trimester.........4.7 - 50.0 ng/ml 2nd trimester.........19.4 - 45.3 ng/ml . 97 ---- RUN DATE: 09/17/08 [facility] NMI LIVE PAGE 1 RUN TIME: 1302 Specimen Inquiry RUN USER: INTERFACE -- Name: COLLEEN RAYGOZA Status: REG REF Re09/16/08 Age/Sex: 37/F Unit#: [id number] [facility] -- [id number] Spec Date: 09/16/[address]: Elena shah MD Spec Type: CYTOLOGY Received: 09/17/08 Copies to: SOURCE ECTOCERVICAL/ENDOCERVICAL Thin Prep with [...] years. Final Interpretation electronically signed by: Elías ALVA(ASCP) 07/14/09 130 2 -- -- DEPARTMENT OF PATHOLOGY, [address] [place] [address] [facility] Permit #[id number] Laurent Soliman M.D. Director Sonido Bustamante M.D. [employer] Worker Dir esau -- 98 Lymphopenia % 99 Anion gap measurement may be of limited value in the presence of any alkalosis, especially in a combined acid base disorder. . 100 Note change in reference range as of 10/26/07. The change was based on recommendations from the [place] [employer]. 101 Please note change in reference range effective 07 . 102 A metabolite of Naproxen, O-desmethylnaproxen, has been shown to interfere with the Jenmargaretik-[place] method for measuring total bilirubin. Samples from patients who have taken Naproxen have shown spurious elevation in total bilirubin levels. 103 Because ethnic data is not always readily [...] 15-29 5 Kidney failure <15 (or dialysis) 104 PLEASE NOTE CHANGE IN REFERENCE RANGE OF 03/14/06. 105 Please note change in reference range effective 08 . 106 -- REFERENCE VALUE -- 25-HYDROXY D TOTAL (D2+D3) Optimum levels in the normal population are 25-80 Test Performed by: [facility] Dpt of Lab Med and Pathology [address] [place] [address] Senior Sql Database Developer: Mak Alaniz III, M.D. 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 Examination 625.0 Dyspareunia 626.4 Irregular Menstrual Cycle Office Visit 03/18/2011 1:30p Main Office Elena Bailon V70.0 Examination General M.DTamika, R.D. Medical Routine AT Health Care Facility V70.0 Examination General Medical Routine AT [facility] V72.31 Routine Panel Edge Painter Examination V72.31 Routine Panel Edge Painter Examination 611.9 Breast Disorders Unspec 611.9 Breast Disorders Unspec 780.93 Memory Loss 780.93 Memory Loss Office Visit 02/01/2011 9:45a Main Office Padmini Sparkle, 611.9 Breast Disorders [employer]-C Unspec Office Visit 11/21/2009 1:30p Main Office Elena Bailon, V72.31 Routine Panel Edge Painter M.D., R.D. Examination V04.81 Need For Prophylactic Vaccination & Inoculation/Influenza V70.0 Examination General Medical Routine AT [facility] 259.9 Endocrine Disorders Other Unspec Office Visit 10/14/2008 3:30p Main Office Elena Bailon, 733.90 Bone & Cartilage M.D., R.D. Disorder Unspec 780.79 Malaise And Fatigue Other 784.0 Headache Office Visit 09/16/2008 1:30p Main Office Elena Bailon, V72.31 Routine Panel Edge Painter M.D., R.D. Examination V70.0 Examination General Medical Routine AT [facility] 780.79 Malaise And Fatigue Other 733.90 Bone & Cartilage Disorder Unspec Plan of Treatment 08/13/2015 - Padmini Morris, [employer] AND [id number] Disorder of breast, unspecifiedComments: will refer for u/s and mammogram. further recommendations based on resultsFollow up:refer for U/S of bilateral breast and diag mammogram. see order note see if it can be done [id number] Other amnesiaComments:will check labs for possible causes of her memory concerns. She will continue to monitor her sx and will contact the office if concerns or worsening sx. further recommendations based on results. discussed possible imaging and/or neuro consult
[2018-07-28 17:40] VITALS: BP 136/83
--- NOTE | 2018-07-28 18:21 | UC ---
Complaint Female HPI - HPI Summary HPI Summary: 47-year-old female who had some pain over both kidneys over the past couple of days and some lower abdominal pain. She denies any fever or chills. She thought she might have a urinary tract infection and wanted to be checked for that. She has not followed up with her [employer] OF [employer] provider for her annual Pap smears for several years. She denies any sexual activity and denies any abnormal vaginal discharge. - History Of Current Complaint Chief Complaint: UCGU Stated Complaint: URINARY COMPLAINT Time Seen by Provider: 07/28/18 17:45 Hx Obtained From: Patient Hx Last Menstrual Period: 06/14/2018 ?: No Onset/Duration: Gradual Onset, Other - Back pain over her kidney area over the past couple of days. Timing: Constant Severity Initially: Mild Severity Currently: Mild - No known injury. Pain Intensity: 6 Character: Dull Aggravating Factor(s): Movement Alleviating Factor(s): Nothing Associated Signs And Symptoms: Positive: Back Pain. Negative: Vaginal Bleeding/ Discharge, Vaginal Discharge, Nausea, Vomiting(# Of Episodes =), Genital Swelling, Genital Blisters - Allergies/Home Medications Allergies/Adverse Reactions: Allergies Allergy/AdvReac Type Severity Reaction Status Date / Time No Known Allergies Allergy Verified 06/22/12 07:16 PMH/Surg Hx/FS Hx/Imm Hx Previously Healthy: Yes Cancer History: Other - Patient had a "cancer scare" with some growths in her breast which were biopsied and were negative. - Surgical History Surgical History: None - Social History Alcohol Use: Daily Substance Use Type: None Smoking Status (MU): Never Smoked Tobacco - Immunization History Most Recent Tetanus Shot: 2008 Review of Systems All Other Systems Reviewed And Are Negative: Yes Genitourinary: Positive: Frequency, Other - Patient states she's been drinking more water because she thought she might have a kidney infection but no pain on urination or burning, no abnormal vaginal discharge. Musculoskeletal: Positive: Other: - Patient complains of mid back pain "over my kidneys" this was not a sudden onset of pain. Is Patient Immunocompromised?: No Physical Exam Triage Information Reviewed: Yes Appearance: Well-Appearing, No Pain Distress, Well-Nourished Vital Signs: Initial Vital Signs Temp 98.5 F 07/28/18 17:35 Pulse 57 07/28/18 17:35 Resp 16 07/28/18 17:35 BP 136/83 07/28/18 17:35 Pulse Ox 100 07/28/18 17:35 Vital Signs Reviewed: Yes Neck: Positive: Supple, Nontender, No Lymphadenopathy Respiratory: Positive: Lungs clear, Normal breath sounds, No respiratory distress, No accessory muscle use Cardiovascular: Positive: RRR, No Murmur, Pulses Normal, Brisk Capillary Refill Abdomen Description: Positive: Nontender, No Organomegaly, Soft Bowel Sounds: Positive: Present Musculoskeletal: Positive: Strength Intact, ROM Intact, Other: - No CVA tenderness. Neurological: Positive: Alert, Muscle Tone Normal Psychological Exam: Normal Skin Exam: Normal Complaint Female Dx - Course Course Of Treatment: The patient's urinalysis here was completely negative. I spoke with the patient suggesting that we do a renal sonogram and she preferred to go through the weekend without any further testing and if the pain is not better by Tuesday or is worse than she will follow up with her primary care provider. I stressed to her the importance if she develops worse symptoms coming into the weekend such as fever, chills, increased back pain, increased abdominal pain and then she is to go to the emergency room for further treatment. The patient is reluctant to do anything further at this time because of the medical's parents she had when she had the possible breast growths that resulted in breast biopsies which were negative however I did stress the importance of follow-up with this and not ignoring the symptoms. - Differential Dx/Diagnosis Provider Diagnosis: Back pain Discharge - Sign-Out/Discharge Documenting (check all that apply): Patient Departure All imaging exams completed and their final reports reviewed: No Studies - Discharge Plan Condition: Fair Disposition: HOME Patient Education Materials: Back Pain (ED) Referrals: Elena Coot MD [Primary Care Provider] - Additional Instructions: Increase fluids, definite follow-up with your primary care provider Tuesday if continued pain. Go to the emergency room if you develop fever, chills, worsening back pain, nausea or vomiting or increased abdominal pain. - Billing Disposition and Condition Condition: FAIR Disposition: Home
== END 2018-07-28 18:30 | disposition home or self-care (01) ==
LOC: UCEAST 17:23
DX: M54.9 Dorsalgia, unspecified (principal); R10.30 Lower abdominal pain, unspecified; R35.0 Frequency of micturition
CPT/HCPCS: 81003; 99211; G0463

== ENCOUNTER 2018-09-03 11:20 | Emergency (ER) | payer BC ==
[2018-09-03 12:30] VITALS: BP 119/77
--- NOTE | 2018-09-03 13:00 | UC ---
Throat Pain/Nasal Bradley HPI - HPI Summary HPI Summary: 47-year-old female presents for 3 week history of sore throat. Denies fever, chills, ear pain, dysphagia, nasal congestion, runny nose, cough, abdominal pain , nausea, vomiting, or heartburn. - History of Current Complaint Chief Complaint: UCRespiratory Stated Complaint: SORE THROAT Time Seen by Provider: 09/03/18 12:32 Hx Obtained From: Patient Hx Last Menstrual Period: 06/14/2018 Pain Intensity: 5 - Allergies/Home Medications Allergies/Adverse Reactions: Allergies Allergy/AdvReac Type Severity Reaction Status Date / Time No Known Allergies Allergy Verified 09/03/18 12:29 Home Medications: Home Medications buPROPion TAB* [Wellbutrin TAB*] 75 mg PO DAILY 09/03/18 [History Confirmed ] PMH/Surg Hx/FS Hx/Imm Hx Previously Healthy: Yes Endocrine History: Hypothyroidism Psychological History: Depression - Surgical History Surgical History: None - Family History Known Family History: Positive: Non-Contributory - Social History Occupation: Employed Full-time Lives: With Family Alcohol Use: Daily Substance Use Type: None Smoking Status (MU): Never Smoked Tobacco - Immunization History Most Recent Tetanus Shot: 2008 Review of Systems All Other Systems Reviewed And Are Negative: Yes Constitutional: Negative: Fever, Chills, Fatigue Skin: Negative: Rash Eyes: Negative: Drainage, Eye Redness ENT: Positive: Sore Throat. Negative: Ear Ache, Nasal Discharge, Sinus Congestion, Sinus Pain/Tenderness Respiratory: Negative: Shortness Of Breath, Cough Cardiovascular: Positive: Negative Gastrointestinal: Positive: Negative Genitourinary: Positive: Negative Musculoskeletal: Positive: Negative Neurological: Positive: Negative Is Patient Immunocompromised?: No Physical Exam - Summary Physical Exam Summary: GENERAL APPEARANCE: Well developed, well nourished, alert and cooperative, and appears to be in no acute distress. EYES: Conjunctiva clear. No drainage. EARS: External auditory canals and tympanic membranes clear, hearing grossly intact. NOSE: No nasal discharge. THROAT: Mild pharyngeal erythema. No tonsilar inflammation, swelling, exudate, or lesions. Uvula midline. Oral cavity normal. Teeth and gingiva in good general condition. NECK: Neck supple, non-tender without lymphadenopathy. CARDIAC: Normal S1 and S2. No S3, S4 or murmurs. Rhythm is regular. There is no peripheral edema, cyanosis or pallor. Extremities are warm and well perfused. Capillary refill is less than 2 seconds. Peripheral pulses intact. LUNGS: Clear to auscultation without rales, rhonchi, wheezing or diminished breath sounds. ABDOMEN: Positive bowel sounds. Soft, nondistended, nontender. No guarding or rebound. No masses or hepatosplenomegally. MUSKULOSKELETAL: ROM intact to all extremities. No joint erythema or tenderness. Normal muscular development. Normal gait. SKIN: Skin normal color, texture and turgor with no lesions or eruptions. Triage Information Reviewed: Yes Vital Signs: Initial Vital Signs Temp 99.3 F 09/03/18 12:26 Pulse 58 09/03/18 12:26 Resp 18 09/03/18 12:26 BP 119/77 09/03/18 12: Pulse Ox 100 09/03/18 12:26 Vital Signs Reviewed: Yes Throat Pain/Nasal Course/Dx - Course Course Of Treatment: 47-year-old female presents for 3 week history of sore throat. Denies fever, chills, ear pain, dysphagia, nasal congestion, runny nose, cough, abdominal pain , nausea, vomiting, or heartburn. Afebrile. VSS. Patient had mild pharyngeal erythema without tonsilar swelling, exudate, or cervical lymphadenopathy and otherwise unremarkable exam. Rapid strep test was negative. Discussed with patient that her symptoms could be from mono or possibly GERD considering the duration of her symptoms with the latter be the most likely. She declines testing for mono at this time and states she does not want to start on a PPI at this time. She is to follow up with her PCP in 3-5 days especially if symptoms are not improving. anticipatory guidance and warning symptoms reviewed with patient. Verbalizes understanding and agrees with POC. - Differential Dx/Diagnosis Differential Diagnosis/HQI/PQRI: Mononucleosis, Pharyngitis, Other - GERD Provider Diagnosis: Pharyngitis Discharge - Sign-Out/Discharge Documenting (check all that apply): Patient Departure All imaging exams completed and their final reports reviewed: No Studies - Discharge Plan Condition: Stable Disposition: HOME Patient Education Materials: Pharyngitis (ED) Referrals: Elena Coto MD [Primary Care Provider] - 3 Days Additional Instructions: Your rapid strep test in the clinic today was negative. I suspect based on your exam and the duration of your symptoms that you may have some gastric reflux although I cannot completely rule out a cause such as mononucleosis which is a viral infection. You can try using over the counter omeoprazole (Prilosec) according to directions to see if this improves your symptoms. Other treatments you can use for your sore throat include: * Use salt water gargles several times a day. * Take over the counter acetaminophen (Tylenol) or ibuprofen (Advil, Motrin) according to directions as needed for pain. * You may also use Chloraseptic spray or Cepacol lonzenges according to directions which contain a numbing medication and can provide some temporary relief from your sore throat. Return here or follow up with your primary care provider in 3-5 days if symptoms persist. Seek immediate medical attention in the emergency room if you have fever greater than 100.5 F despite taking acetaminophen or ibuprofen, are unable to swallow or develop drooling, are unable to open your mouth fully, are unable to eat or drink, have pain that is not relieved with over the counter pain medication, or have any difficulty breathing. - Billing Disposition and Condition Condition: STABLE Disposition: Home - Attestation Statements Provider Attestation: I was available for consult. This patient was seen by the DAMASO. The patient was not presented to, seen by, or examined by me. -Inge
== END 2018-09-03 13:09 | disposition home or self-care (01) ==
LOC: UCEAST 11:20
DX: J02.9 Acute pharyngitis, unspecified (principal); E03.9 Hypothyroidism, unspecified; F32.9 Major depressive disorder, single episode, unspecified
CPT/HCPCS: 87651; 99211; G0463

== ENCOUNTER 2019-01-06 11:34 | Emergency (ER) | payer BC ==
[2019-01-06 11:53] VITALS: BP 130/74
--- NOTE | 2019-01-06 12:21 | UC ---
Complaint Female HPI - HPI Summary HPI Summary: pain and burning with urination no fevers chills nausea vomiting or back pain--- symptoms have been going on for 2 weeks---has had a similar episode a few months ago that did not grow out bacteria on culture -- - History Of Current Complaint Chief Complaint: UCGU Stated Complaint: BURNING URINATION Time Seen by Provider: 01/06/19 12:10 Hx Obtained From: Patient Hx Last Menstrual Period: 12/22/18 ?: No Onset/Duration: Sudden Onset, Lasting Weeks - 2, Still Present Timing: Constant Pain Intensity: 4 Pain Scale Used: 0-10 Numeric Character: Burning Aggravating Factor(s): Urination Alleviating Factor(s): Nothing Associated Signs And Symptoms: Negative: Fever, Back Pain, Vaginal Discharge, Nausea Related Hx: Similar Episode/Dx as: - dysuria - Allergies/Home Medications Allergies/Adverse Reactions: Allergies Allergy/AdvReac Type Severity Reaction Status Date / Time No Known Allergies Allergy Verified 01/06/19 11:53 PMH/Surg Hx/FS Hx/Imm Hx Previously Healthy: No Endocrine History: Hypothyroidism Psychological History: Depression - Surgical History Surgical History: None - Family History Known Family History: Positive: Non-Contributory - Social History Occupation: Employed Full-time Lives: With Family Alcohol Use: Occasionally Substance Use Type: None Smoking Status (MU): Never Smoked Tobacco - Immunization History Most Recent Tetanus Shot: 2008 Review of Systems All Other Systems Reviewed And Are Negative: Yes Constitutional: Positive: Negative Skin: Positive: Negative Eyes: Positive: Negative ENT: Positive: Negative Respiratory: Positive: Negative Cardiovascular: Positive: Negative Gastrointestinal: Positive: Negative Genitourinary: Positive: Dysuria, Urgency Motor: Positive: Negative Neurovascular: Positive: Negative Musculoskeletal: Positive: Negative Neurological: Positive: Negative Psychological: Positive: Negative Is Patient Immunocompromised?: No Physical Exam Triage Information Reviewed: Yes Appearance: Well-Appearing, No Pain Distress, Well-Nourished Vital Signs: Initial Vital Signs Temp 99.5 F 01/06/19 11:47 Pulse 65 01/06/19 11:47 Resp 18 01/06/19 11:47 BP 130/74 01/06/19 11:47 Pulse Ox 100 01/06/19 11:47 Vital Signs Reviewed: Yes Eye Exam: Normal Eyes: Positive: Conjunctiva Clear ENT Exam: Normal ENT: Positive: Normal ENT inspection, Hearing grossly normal. Negative: Nasal congestion, Trismus, Muffled voice, Hoarse voice Dental Exam: Normal Neck exam: Normal Neck: Positive: Supple, Nontender, No Lymphadenopathy Respiratory Exam: Normal Respiratory: Positive: Chest non-tender, No respiratory distress, No accessory muscle use Cardiovascular Exam: Normal Cardiovascular: Positive: RRR, Pulses Normal, Brisk Capillary Refill Abdominal Exam: Normal Abdomen Description: Positive: No Organomegaly, Soft, Other: - supra pubic tenderness. Negative: Nontender, CVA Tenderness (R), CVA Tenderness (L) Musculoskeletal Exam: Normal Musculoskeletal: Positive: Strength Intact, ROM Intact, No Edema Neurological Exam: Normal Neurological: Positive: Alert, Muscle Tone Normal Psychological Exam: Normal Skin Exam: Normal Diagnostics - Laboratory Lab Results: +3 blood +1 leukoesterase Complaint Female Dx - Course Course Of Treatment: culture urine add mycoplasm and uroplasm pcr will treat with macrobid and pyridium, increase fluids and follow with Dr. Clements - Differential Dx/Diagnosis Provider Diagnosis: Dysuria, Hematuria Discharge ED - Sign-Out/Discharge Documenting (check all that apply): Patient Departure All imaging exams completed and their final reports reviewed: No Studies - Discharge Plan Condition: Stable Disposition: HOME Prescriptions: Nitrofurantoin Monohyd/M-Cryst [Macrobid 100 mg Capsule] 100 mg PO BID #10 cap Phenazopyridine TAB* [Pyridium 100 mg TAB*] 100 mg PO TID PRN #9 tab PRN Reason: urinary pain/burning Patient Education Materials: Phenazopyridine (By mouth), Urinary Tract Infection in Women (ED), Hematuria (ED), Dysuria (ED) Referrals: Elena Coto MD [Primary Care Provider] - 1 Week - Billing Disposition and Condition Condition: STABLE Disposition: Home
--- NOTE | 2019-01-07 15:04 | UC ---
- Progress Note Progress Note: urine with few enterobacteriacae - ?contamination pt on macrobid - please call pt and see if sx improving - if yes continue until complete recommend f/u with pcp if sx persist Course/Dx - Diagnoses Provider Diagnoses: Dysuria, Hematuria Discharge ED - Sign-Out/Discharge Documenting (check all that apply): Post-Discharge Follow Up All imaging exams completed and their final reports reviewed: No Studies - Discharge Plan Condition: Stable Disposition: HOME Prescriptions: Nitrofurantoin Monohyd/M-Cryst [Macrobid 100 mg Capsule] 100 mg PO BID #10 cap Phenazopyridine TAB* [Pyridium 100 mg TAB*] 100 mg PO TID PRN #9 tab PRN Reason: urinary pain/burning Patient Education Materials: Phenazopyridine (By mouth), Urinary Tract Infection in Women (ED), Hematuria (ED), Dysuria (ED) Referrals: Elena Coto MD [Primary Care Provider] - 1 Week - Billing Disposition and Condition Condition: STABLE Disposition: Home
[2019-01-10 16:14] LABS: Ureaplasma parvum PCR Positive; Ureaplasma urealyticum PCR Negative
--- NOTE | 2019-01-11 07:42 | UC ---
- Progress Note Progress Note: Patient seen in clinic on January 06, 2019 and treated with Macrobid for UTI symptoms. Patient's been called by nursing and patient reports that she is improved. Ureaplasma parv comes back positive. Nursing to call patient inform them of the results and ensure that they follow- up with her primary care doctor. Course/Dx - Diagnoses Provider Diagnoses: Dysuria, Hematuria Discharge ED - Sign-Out/Discharge Documenting (check all that apply): Patient Departure All imaging exams completed and their final reports reviewed: No Studies - Discharge Plan Condition: Stable Disposition: HOME Prescriptions: Nitrofurantoin Monohyd/M-Cryst [Macrobid 100 mg Capsule] 100 mg PO BID #10 cap Phenazopyridine TAB* [Pyridium 100 mg TAB*] 100 mg PO TID PRN #9 tab PRN Reason: urinary pain/burning Patient Education Materials: Phenazopyridine (By mouth), Urinary Tract Infection in Women (ED), Hematuria (ED), Dysuria (ED) Referrals: Elena Coto MD [Primary Care Provider] - 1 Week - Billing Disposition and Condition Condition: STABLE Disposition: Home
== END 2019-01-06 12:37 | disposition home or self-care (01) ==
LOC: UCEAST 11:34
DX: R31.9 Hematuria, unspecified (principal); R30.0 Dysuria
CPT/HCPCS: 81003; 84702; 87086; 87798; 99212; G0463

== ENCOUNTER 2019-02-20 19:13 | Emergency (ER) | payer BC ==
[2019-02-20 19:22] VITALS: BP 121/85
--- NOTE | 2019-02-20 19:29 | UC ---
Complaint Female HPI - HPI Summary HPI Summary: 48 yo female c/o freq / urg / dysuria last couple days. Recently completed abx last week s/p mohs procedure. + dysuria. No vikash hematuria, however currently is on her period. No fever / chills. No sob / cp / palpitations. Hx uti sx in the recent past, cx was negative, but reports that the sx were rapidly alleviated with the antibiotic (per [facility] - macrodantin). No back pain / no flank pain. - History Of Current Complaint Chief Complaint: UCGU Stated Complaint: UTI Time Seen by Provider: 02/20/19 19:25 Hx Obtained From: Patient Hx Last Menstrual Period: 02/20/19 Pain Intensity: 4 - Allergies/Home Medications Allergies/Adverse Reactions: Allergies Allergy/AdvReac Type Severity Reaction Status Date / Time No Known Allergies Allergy Verified 02/20/19 19:22 Home Medications: Home Medications Norethindrone 0.35 mg PO DAILY 02/20/19 [History Confirmed 02/20/19] PMH/Surg Hx/FS Hx/Imm Hx Previously Healthy: Yes - see hpi - Surgical History Surgical History: None - Family History Known Family History: Positive: Non-Contributory - Social History Alcohol Use: Occasionally Substance Use Type: None Smoking Status (MU): Never Smoked Tobacco - Immunization History Most Recent Tetanus Shot: 2008 Review of Systems All Other Systems Reviewed And Are Negative: Yes Constitutional: Positive: Negative - see hpi Skin: Positive: Negative Eyes: Positive: Negative ENT: Positive: Negative Respiratory: Positive: Negative Cardiovascular: Positive: Negative Gastrointestinal: Positive: Negative Genitourinary: Positive: Other - see hpi Motor: Positive: Negative Neurovascular: Positive: Negative Musculoskeletal: Positive: Negative Neurological: Positive: Negative Psychological: Positive: Negative Is Patient Immunocompromised?: No Physical Exam Triage Information Reviewed: Yes Appearance: Well-Appearing, Well-Nourished Vital Signs: Initial Vital Signs Temp 97.7 F 02/20/19 19:18 Pulse 70 02/20/19 19:18 Resp 16 02/20/19 19:18 BP 121/85 02/20/19 19:18 Pulse Ox 100 02/20/19 19:18 Vital Signs Reviewed: Yes Eye Exam: Normal ENT Exam: Normal Neck exam: Normal - no c/o Respiratory Exam: Normal - no tachypnea, no dyspnea, rr normal Cardiovascular Exam: Normal - hr normal, nondiaphoretic Abdominal Exam: Other - + tender over bladder area, no r/g. no cvat. no flank tenderness. Musculoskeletal Exam: Normal - gait steady Neurological Exam: Normal - grossly nonfocal Psychological Exam: Normal - conversing easily Skin Exam: Normal - no visible or reported rash, nondiaphoretic. Complaint Female Dx - Course Course Of Treatment: Reviewed urine dip with Ms. Herrerat. Cx sent. Declines rx pyridium, will purchase non-rx strength over the counter. Will f/u with pcp re future urine check. Consider ucg, she will check at home. Questions as posed answered to the best of my ability. - Differential Dx/Diagnosis Provider Diagnosis: UTI (urinary tract infection) Discharge ED - Sign-Out/Discharge Documenting (check all that apply): Patient Departure All imaging exams completed and their final reports reviewed: No Studies - Discharge Plan Condition: Stable Disposition: HOME Prescriptions: Nitrofurantoin Macrocrystals* [Macrodantin 100 mg*] 100 mg PO BID 7 Days #13 cap Patient Education Materials: Urinary Tract Infection in Women (DC) Referrals: Elena Coto MD [Primary Care Provider] - Additional Instructions: Hydrate. Urine culture in the lab. Please have your urine rechecked when not on your period, and symptom free. Please seek medical attention for worse or new problems. - Billing Disposition and Condition Condition: STABLE Disposition: Home
[2019-02-20] MEDS ORDERED: Nitrofurantoin Macrocrystals* 50 MG CAP PO ONE (19:50)
--- NOTE | 2019-02-22 15:43 | UC ---
- Progress Note Progress Note: Urine culture positive for E. coli. Patient was treated with antibiotic which should adequately treat infection. No further treatment required unless patient continues to be symptomatic. Umm Oreilly PA-C 02/22/19 1543 Course/Dx - Diagnoses Provider Diagnoses: UTI (urinary tract infection) Discharge ED - Sign-Out/Discharge Documenting (check all that apply): Post-Discharge Follow Up All imaging exams completed and their final reports reviewed: No Studies - Discharge Plan Condition: Stable Disposition: HOME Prescriptions: Nitrofurantoin Macrocrystals* [Macrodantin 100 mg*] 100 mg PO BID 7 Days #13 cap Patient Education Materials: Urinary Tract Infection in Women (DC) Referrals: Elena Coto MD [Primary Care Provider] - Additional Instructions: Hydrate. Urine culture in the lab. Please have your urine rechecked when not on your period, and symptom free. Please seek medical attention for worse or new problems. - Billing Disposition and Condition Condition: STABLE Disposition: Home
== END 2019-02-20 20:15 | disposition home or self-care (01) ==
LOC: UCEAST 19:13
DX: N39.0 Urinary tract infection, site not specified (principal)
CPT/HCPCS: 81003; 87077; 87086; 87186; 99212; A9270-GY; G0463